=== PATIENT | female | born 1950 | race Caucasian/White ===

== ENCOUNTER 2018-11-14 13:36 | Outpatient (REF) | payer MEDICARE, SELFPAY ==
[2018-11-14 22:01] LABS: ALT 26 U/L (12-78); AST 23 U/L (15-37); Albumin 3.9 g/dL (3.4-5.0); Alkaline Phosphatase 83 U/L (46-116); Anion Gap 9.4 mmol/L (3-11); BUN 19 mg/dL (7-18); Bilirubin, Total 0.6 mg/dL (0.2-1.0); CO2 29.6 mmol/L (21.0-32.0); CREATININE 0.61 mg/dL (0.55-1.02); Calcium 9.4 mg/dL (8.5-10.1); Chloride 101 mmol/L (98-107); Glucose 122 mg/dL (70-100); Potassium 3.3 mmol/L (3.5-5.1); Sodium 140 mmol/L (136-145); Total Protein 7.5 g/dL (6.4-8.2)
== END 2018-11-14 13:56 ==
LOC: NCHCN 13:36
PROVIDERS: Visit Provider Nurse Practitioner
DX: E87.6 Hypokalemia (principal); I10 Essential (primary) hypertension
CPT/HCPCS: 80053

== ENCOUNTER 2018-12-03 00:15 | Outpatient (CLI) | payer MEDICARE, SELFPAY ==
--- NOTE | 2018-12-03 12:25 | DI.MAMMO_ITS ---
SYMPTOM/DIAGNOSIS: SCREENING Z12.31 MAMMOGRAMS: Mammograms were interpreted according to the usual protocol including computer analysis with CAD system, tomosynthesis and C view imaging. Comparison is made with exams from [id number]. The breasts are composed of fatty density tissue, breast density, Category A. No suspicious masses or suspicious microcalcifications are seen. There has been no significant change. IMPRESSION: Category 1, negative mammogram. Yearly screening mammography is recommended. [facility] ASSESSMENT OF FINDINGS: Negative. Category 1. Patient will receive a letter notifying them of these results. BI-RAD category A. The breasts are almost entirely fatty.
== END 2018-12-03 00:35 ==
PROVIDERS: Visit Provider Nurse Practitioner
DX: Z12.31 Encounter for screening mammogram for malignant neoplasm of breast (principal)
CPT/HCPCS: 77063; 77067

== ENCOUNTER 2018-12-03 14:21 | Outpatient (REF) | payer MEDICARE, SELFPAY ==
[2018-12-03 21:13] LABS: Anion Gap 10.2 mmol/L (3-11); BUN 16 mg/dL (7-18); CO2 26.8 mmol/L (21.0-32.0); CREATININE 0.66 mg/dL (0.55-1.02); Chloride 103 mmol/L (98-107); Glucose 141 mg/dL (70-100); Potassium 4.2 mmol/L (3.5-5.1); Sodium 140 mmol/L (136-145)
== END 2018-12-03 14:41 ==
LOC: NCHCN 14:21
PROVIDERS: PCP Nurse Practitioner Family; Visit Provider Nurse Practitioner Family
DX: E87.6 Hypokalemia (principal); I10 Essential (primary) hypertension
CPT/HCPCS: 80048

== ENCOUNTER → 2018-12-17 09:41 | Outpatient (BNVA) | payer MEDICARE, SELFPAY | PROVIDERS: PCP Nurse Practitioner Family; Visit Provider Surgery | DX: K43.9 Ventral hernia without obstruction or gangrene (principal); I10 Essential (primary) hypertension | CPT/HCPCS: 99213 ==

== ENCOUNTER 2018-12-19 00:58 | Outpatient (CLI) | payer MEDICARE, SELFPAY ==
--- NOTE | 2018-12-19 08:01 | DI.CT_ITS ---
SYMPTOM/DIAGNOSIS: HERNIA AT UMBILICUS, K43.[address]: CT scan of the abdomen and pelvis was performed following oral and intravenous contrast material. There are no priors for direct comparison. Atelectatic changes are seen in the lung bases. There is a small hiatal hernia. The liver is normal in size. No suspicious hepatic mass is seen. The portal, superior mesenteric and splenic veins are patent. The patient is status post cholecystectomy. There is no biliary ductal dilatation. The pancreas and peripancreatic soft tissues are unremarkable. The spleen is unremarkable. Incidental note is made of a small accessory spleen laterally. The adrenal glands are unremarkable. There are bilateral renal cysts, the largest is seen on the left kidney and measures 6.8 by 7.2 by 7 cm. There are thin calcifications seen within the wall. No solid component is present. This was present on the abdominal ultrasound from 07/23/11. There is a 5 mm. non obstructing stone in the upper pole of the left kidney. The urinary bladder is intact. The reproductive organs were visualized. There are cysts seen bilaterally. The largest is on the left ovary which measures 3.2 by 2.3 cm. There is a cystic structure in the cul-de-sac measuring 6.7 by 5.0 cm. The right ovary was visualized and is grossly unremarkable except for a small 1.3 cm. cyst. There is mild atherosclerosis of the abdominal aorta but no aneurysmal dilatation is present. No significant abdominal or pelvic adenopathy, ascites or pneumoperitoneum is present. There is colonic diverticulosis but no evidence of acute diverticulitis. No findings to suggest an acute appendicitis are present. There is a midline anterior abdominal wall hernia containing an unremarkable loop of small bowel. No evidence of strangulation or incarceration is seen. Degenerative changes are seen in the spine, particularly at the L 4-5 disc space. IMPRESSION: 1. Moderate sized small bowel containing midline anterior abdominal wall hernia. No evidence of strangulation or incarceration. 2. 6.7 cm. cystic structure in the cul-de-sac in the pelvis. Pelvic ultrasound and/or MRI should be considered for further evaluation. 3. Left ovarian cysts. Pelvic ultrasound is recommended for further evaluation in this presumably postmenopausal patient. 4. Left nephrolithiasis.
[2018-12-19 08:32] LABS: HCT 40.7 % (36.0-46.0); HGB 13.6 g/dL (12.0-15.5); Mean Corp. HGB Concentration 33.4 g/dL (32.0-36.0); Mean Corpuscular Hemoglobin 31.7 pg (27.0-33.0); Mean Corpuscular Volume 94.9 fL (80-95); Mean Platelet Volume 10.5 fL (8.0-11.0); Platelet Count 256 x1000/uL (130-400); RBC 4.29 m/cumm (4.00-5.20); RBC Distribution Width 12.9 % (11.7-14.6); White Blood Cell Count 7.17 k/cumm (4.4-10.8)
[2018-12-19 08:45] LABS: ALT 24 U/L (12-78); AST 22 U/L (15-37); Albumin 3.5 g/dL (3.4-5.0); Alkaline Phosphatase 83 U/L (46-116); Anion Gap 6.8 mmol/L (3-11); BUN 15 mg/dL (7-18); Bilirubin, Total 0.5 mg/dL (0.2-1.0); CO2 28.2 mmol/L (21.0-32.0); CREATININE 0.63 mg/dL (0.55-1.02); Calcium 8.7 mg/dL (8.5-10.1); Chloride 106 mmol/L (98-107); Glucose 118 mg/dL (70-100); Potassium 3.9 mmol/L (3.5-5.1); Sodium 141 mmol/L (136-145); Total Protein 7.4 g/dL (6.4-8.2)
[2018-12-19] MEDS: Omnipaque 350 MG/ML 100 ML BTL IJ (09:24)
== END 2018-12-19 01:18 ==
PROVIDERS: PCP Nurse Practitioner Family; Visit Provider Surgery
DX: K43.9 Ventral hernia without obstruction or gangrene (principal); N83.292 Other ovarian cyst, left side; N20.0 Calculus of kidney; Z90.49 Acquired absence of other specified parts of digestive tract; N28.1 Cyst of kidney, acquired; N83.291 Other ovarian cyst, right side; N85.8 Other specified noninflammatory disorders of uterus
CPT/HCPCS: 80053; 85027; 74177; J3490

== ENCOUNTER → 2018-12-31 09:32 | Outpatient (BNVA) | payer MEDICARE, SELFPAY | PROVIDERS: PCP Nurse Practitioner Family; Referring Provider Nurse Practitioner Family; Visit Provider Surgery | DX: R69 Illness, unspecified ==

== ENCOUNTER 2018-12-31 10:10 | Outpatient (CLI) | payer MEDICARE, SELFPAY ==
[2019-01-01 11:32] LABS: CA 125 11 U/mL (0-30)
== END 2018-12-31 10:30 ==
PROVIDERS: PCP Nurse Practitioner Family; Visit Provider Surgery
DX: D39.12 Neoplasm of uncertain behavior of left ovary (principal); I10 Essential (primary) hypertension; D39.8 Neoplasm of uncertain behavior of other specified female genital organs
CPT/HCPCS: 36415; 86304; 99212; 99213

== ENCOUNTER 2019-01-21 01:08 | Outpatient (CLI) | payer MEDICARE, SELFPAY ==
--- NOTE | 2019-01-21 13:40 | DI.MRI_ITS ---
SYMPTOMS/DIAGNOSIS: ABNORMAL CT, LEFT OVARIAN CYST, N83.202, PELVIC SWELLING, R19.00, POSTMENOPAUSAL, Z78.0 MRI OF THE PELVIS: Pre and post contrast examination was performed. Comparison CT scan is 12/19/18. The right ovary is seen. It measures 3.1 cm AP x 1.9 cm transverse. There are two small cysts seen; the largest measures 1.4 cm, the smaller measures 0.8 cm (series 4 image 20). The left ovary is visualized. It measures 3.6 x 1.9 cm. There is a lobulated cyst seen on the left ovary measuring 3.2 x 1.9 cm (series 4 image 18). This corresponds to the cyst seen on the CT scan in the left adnexa. There is a 6.1 cm transverse x 5.8 cm AP x 3.6 cm craniocaudad homogeneous mass in the cul-de-sac. It is homogeneously hyperintense on the T2 weighted images and homogeneously hypointense on the T1 weighted images. Following contrast administration, there is thin enhancement of the wall. No solid component is identified. It appears to be separate from either ovary. It also appears to be distinct from the urinary bladder. There is diverticulosis seen of the sigmoid colon, but no findings to suggest acute diverticulitis. No free pelvic fluid is identified. No significant pelvic adenopathy is seen. The uterus appears grossly unremarkable. Marrow signal is within normal limits. Degenerative changes are seen in the lower lumbar spine and sacroiliac joints. IMPRESSION: 1. A 6.1 cm simple cystic lesion in the cul-de-sac. Differential considerations include peritoneal inclusion cyst, paraovarian cyst, lymphocele, endometrioma. Other etiologies cannot be entirely excluded. 2. Bilateral ovarian cysts. The largest is seen on the right and measures 3.1 x 1.9 cm.
[2019-01-21] MEDS: Normal Saline Flush 10 ML SYR IVP (14:30)
[2019-01-21] MEDS: Gadoterate meglumine 20 ML VIAL IVP (14:32)
== END 2019-01-21 01:28 ==
PROVIDERS: PCP Nurse Practitioner Family; Visit Provider Surgery
DX: R19.00 Intra-abdominal and pelvic swelling, mass and lump, unspecified site; Z78.0 Asymptomatic menopausal state; N83.291 Other ovarian cyst, right side; N83.292 Other ovarian cyst, left side; D49.0 Neoplasm of unspecified behavior of digestive system
CPT/HCPCS: 72197

== ENCOUNTER 2019-03-02 15:27 | Emergency (ER) | payer MEDICARE, SELFPAY ==
[2019-03-02] VITALS (17 sets, daily range): BP systolic 92–137; BP diastolic 48–98; PULSE 66–90; RESP 16; TEMP 36.7; O2SAT 86–98
[2019-03-02 15:49] LABS: Bilirubin Negative (Negative); Blood Trace-intact (Negative); Clarity Sl Cloudy (Clear); Glucose Negative (Negative); Ketones Negative (Negative); Leukocyte Esterase Small (Negative); Nitrite Positive (Negative); Urobilinogen 0.2 EU/dL (Up TO 0.2); pH 5.5 (5-8)
[2019-03-02 16:00] LABS: Bacteria Moderate HPF (Negative); C & S Indicated? Yes; Casts Negative LPF (Negative); Crystals Negative HPF (Negative); Epithelial Cells Rare HPF (Negative); Mucus Negative (Negative); Other Cells Negative (Negative); RBC 0-2 (0-2); WBC >50 HPF (0-5)
--- NOTE | 2019-03-02 16:14 | W.ED.GENAD ---
Discharge Plan Disposition Patient Disposition: HOME Discharge Details Chief Complaint: FlankPain Clinical Impression: Acute flank pain, Urinary tract infection Primary Care Provider: Nsiha Samano ED Provider: Jean Pastor Home Meds and New Rx's Prescriptions: New cephalexin 500 mg tablet 500 mg PO Q12H Qty: 14 RF: 0 No Action simvastatin 20 mg tablet 20 mg PO QHS RF: 0 losartan 50 mg tablet 50 mg PO DAILY RF: 0 chlorthalidone 25 mg Tablet 50 mg PO DAILY RF: 0 Discharge Instructions Instructions: Urinary Tract Infection in Women (ED), Flank Pain (ED) Additional Instructions: Please return for increasing back pain fever chills or other concern Referrals: Nisha Samano [Primary Care Provider] - [facility] General Date/Time Provider Initiated Documentation: 03/02/19 15:47. Related Data Home Medications Medication Instructions Recorded Confirmed losartan 50 mg tablet 50 mg PO DAILY 12/12/18 03/02/19 simvastatin 20 mg tablet 20 mg PO QHS 12/12/18 03/02/19 cephalexin 500 mg PO Q12H #14 tab 03/02/19 chlorthalidone 50 mg PO DAILY 03/02/19 03/02/19 Previous Rx's Medication Instructions Recorded cephalexin 500 mg PO Q12H #14 tab 03/02/19 Allergies Allergy/AdvReac Type Severity Reaction Status Date / Time lisinopril Allergy Unknown Verified 03/02/19 15:36 General Stated Complaint: FlankPain FERNANDO: 3 PFSH Medical History (Updated 03/02/19 @ 15:36 by Annalisa Gomez) Dyslipidemia (Chronic) Hernia (Chronic) HTN (hypertension) (Chronic) Hypokalemia (Acute) Intermittent palpitations (Chronic) Left ventricular hypertrophy (Chronic) 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) Umbilical hernia (Chronic) Surgical History (Updated 03/02/19 @ 15:36 by Annalisa Gomez) H/O tubal ligation (Chronic) Status post surgical removal of both fallopian tubes (Acute) Social History Smoking/Tobacco Use Status: Never Alcohol Intake: never Drug use: Never Substance use type: does not use Do you feel safe at home: Yes Do you feel safe in your relationship?: Yes Course Vital Signs Temperature 36.7 C 03/02/19 15:30 Pulse 90 03/02/19 15:30 Respiratory Rate 16 03/02/19 15:30 Blood Pressure 137/98 H 03/02/19 15:30 Pulse Oximetry 98 03/02/19 15:30 Temperature 36.7 C 03/02/19 15:30 Temperature Source Skin 03/02/19 15:30 Pulse 90 03/02/19 15:30 Respiratory Rate 16 03/02/19 15:30 Respiratory Effort Non-Labored 03/02/19 15:33 Blood Pressure 137/98 H 03/02/19 15:30 Pulse Oximetry 98 03/02/19 15:30 Pain Level 4 03/02/19 15:42 Lab/Test Results Lab/Test Results: 03/02/19 15:40 Urine - Reflex from Ua Urine Culture - Pending Laboratory Tests Range/Units 03/02/19 15:40 Urine Color (Yellow) Yellow Urine Clarity (Clear) Sl cloudy Urine pH (5-8) 5.5 Ur Specific [place] (1.005-1.025) 1.020 Urine Protein (Negative) mg/dL Trace H Urine Ketones (Negative) mg/dL Negative Urine Blood (Negative) Trace-intact H Urine Nitrite (Negative) Positive H Urine Bilirubin (Negative) Negative Urine Urobilinogen (Up TO 0.2) EU/dL 0.2 Ur Leukocyte Esterase (Negative) Small H Urine RBC (0-2) 0-2 Urine WBC (0-5) HPF >50 Ur Epithelial Cells (Negative) HPF Rare Urine Crystals (Negative) HPF Negative Urine Bacteria (Negative) HPF Moderate Urine Casts (Negative) LPF Negative Urine Mucus (Negative) Negative Urine Other (Negative) Negative Ur Culture Indicated? Yes Urine Glucose (Negative) mg/dL Negative
[2019-03-02 17:06] LABS: Abs Immature Grans 0.02 k/cumm (0.0-0.09); Absolute Basophil Count 0.04 k/cumm (0.0-0.2); Absolute Eosinophil Count 0.09 k/cumm (0.0-0.7); Absolute Lymphocyte Count 1.74 k/cumm (1.2-3.4); Absolute Monocyte Count 0.74 k/cumm (0.11-0.7); Absolute Neutrophil Count 4.07 k/cumm (1.2-6.7); Basophils % 0.6; Eosinophils % 1.3; HCT 41.3 % (36.0-46.0); HGB 14.5 g/dL (12.0-15.5); Immature Grans % 0.3; Mean Corp. HGB Concentration 35.1 g/dL (32.0-36.0); Mean Corpuscular Hemoglobin 31.8 pg (27.0-33.0); Mean Corpuscular Volume 90.6 fL (80-95); Mean Platelet Volume 10.6 fL (8.0-11.0); Neutrophils % 60.8; Platelet Count 269 x1000/uL (130-400); RBC 4.56 m/cumm (4.00-5.20); RBC Distribution Width 12.4 % (11.7-14.6)
[2019-03-02 17:16] LABS: ALT 21 U/L (12-78); AST 17 U/L (15-37); Albumin 3.7 g/dL (3.4-5.0); Alkaline Phosphatase 94 U/L (46-116); Anion Gap 9.3 mmol/L (3-11); BUN 19 mg/dL (7-18); Bilirubin, Total 0.6 mg/dL (0.2-1.0); CO2 28.7 mmol/L (21.0-32.0); CREATININE 0.71 mg/dL (0.55-1.02); Calcium 9.6 mg/dL (8.5-10.1); Chloride 104 mmol/L (98-107); Glucose 133 mg/dL (70-100); Lipase 119 U/L (73-393); Magnesium 1.9 mg/dL (1.8-2.4); Sodium 142 mmol/L (136-145); Total Protein 7.6 g/dL (6.4-8.2)
[2019-03-02 17:26] LABS: Potassium 2.9 mmol/L (3.5-5.1)
--- NOTE | 2019-03-02 17:31 | DI.CT_ITS ---
SYMPTOMS/DIAGNOSIS: RIGHT LOWER QUADRANT PAIN, POST TUBAL CT UROGRAPHY: Noncontrast CT scan of the abdomen and pelvis followed by contrast was performed. A [id number] image through the abdomen and pelvis was also obtained. The noncontrast CT scan shows a 6 mm nonobstructing stone in the mid pole of the left kidney. This is unchanged compared to 12/19/18. No ureterolithiasis or bladder stones are present. The patient is status post cholecystectomy. Following contrast administration, the CT scan was performed. The liver is normal in size. No suspicious hepatic mass is seen. There is no biliary ductal dilatation. The pancreas, spleen and adrenal glands are unremarkable. There are stable bilateral renal cysts, the largest is seen in the superior pole of the left kidney and contains thin wall calcification. No new or suspicious renal masses are seen. The urinary bladder is intact. The reproductive organs are unremarkable as visualized. The ovaries were not visualized on the current examination. The previously seen cystic structure in the pelvis is no longer visualized and may have been surgically resected. The abdominal aorta is of normal caliber. No aneurysmal dilatation is seen. No significant abdominal or pelvic adenopathy, ascites or pneumoperitoneum is present. There is diverticulosis of the colon, but no evidence of acute diverticulitis. No evidence of bowel obstruction, inflammation or infection. No findings to suggest an acute appendicitis are present. There is again seen a midline anterior abdominal wall hernia containing an unremarkable loop of bowel. No evidence of strangulation. Delayed images through the kidneys, ureters and bladder show no evidence of obstruction. Contrast is seen in the urinary bladder. No filling defects are seen. Incidental note is made of a cystocele arising from the base of the bladder. It is unchanged. No acute osseous abnormality is identified. IMPRESSION: 1. Colonic diverticulosis but no evidence of acute diverticulitis. The colon is largely contracted, making evaluation of wall thickness difficult. 2. Stable bilateral renal cysts and left nephrolithiasis. 3. Stable umbilical hernia containing fat and unremarkable bowel loops. No evidence of obstruction or strangulation. 4. Appendix not visualized, but no findings to suggest acute appendicitis. 5. Ovaries not visualized. The cystic structure previously seen in the pelvis is no longer visualized and these may have been surgically resected.
[2019-03-02] MEDS: Omnipaque 350 MG/ML 100 ML BTL IJ (17:50)
[2019-03-02] MEDS: Normal Saline 1,000 ML 1000 ML IV (18:07)
[2019-03-02] MEDS: Potassium Chloride 20 MEQ TABCR 40 MEQ PO (18:07)
--- NOTE | 2019-03-02 18:17 | DI.VRAD_ITS ---
Addendum created by Chrsi Triana MD on 03/02/2019 7:09:42 PM EDT Addendum: I was contacted by Lavell Garcia at 6:05 PM on 03/02/2019 with a request for further review of the exam from the facility. He indicates that this was actually a CT urography protocol exam, and not a standard CT abdomen and pelvis without and with contrast. No further urologic history was provided. A 7 mm Bosniak category 1 cyst is identified in the lateral midpole of the right kidney. A 5 mm Bosniak category 1 cyst is identified in the posterior midpole of the right kidney. An 8mm cyst in the medial lower pole cortex of the right kidney demonstrates a thin internal septation consistent with a small Bosniak category 2 cyst. A large 7.3 cm cyst in the upper pole of the left kidney demonstrates thin peripheral rim calcification consistent with a large Bosniak category 2 cyst. Bilateral renal contrast excretion is maintained without evidence of hydronephrosis or ureteral stones. The previously identified 6 mm stone in the midpole distribution of the left kidney is unchanged. No solid renal mass lesions. Initial report created on 03/02/2019 6:17:00 PM EDT EXAM: CT Abdomen and Pelvis Without and With Contrast EXAM DATE/TIME: 03/02/2019 4:47 PM CLINICAL HISTORY: 68 years old, female; Other: Post tubal now presenting with pain; Prior surgery TECHNIQUE: Imaging protocol: Axial computed tomography images of the abdomen and pelvis without and with intravenous contrast. Coronal and sagittal reformatted images were created and reviewed. Radiation optimization: All CT scans at this facility use at least one of these dose optimization techniques: automated exposure control; mA and/or kV adjustment per patient size (includes targeted exams where dose is matched to clinical indication); or iterative reconstruction. Contrast material: OMNI 350; Contrast volume: 100 ml; Contrast route: IV; COMPARISON: CT ABDOMEN PELVIS W 12/19/2018 9:10 AM FINDINGS: Liver: The liver is normal in appearance. Gallbladder and bile ducts: Prior cholecystectomy with expected mild postoperative dilatation of the biliary system. Pancreas: Normal. No inflammatory changes or ductal dilation. Spleen: The spleen is normal in appearance. Adrenals: Normal. No adrenal mass. Kidneys and ureters: 6 mm probable cyst in the medial midpole cortex of the right kidney unchanged. 6 mm probable cyst in the lateral midpole cortex of the right kidney unchanged. 5 mm probable cyst in the posterior cortex of the right kidney unchanged. Large 7.1 cm cyst with thin peripheral calcification in the upper pole of the left kidney is unchanged. 6 mm nonobstructive stone in the midpole the left kidney is unchanged in position. No hydronephrosis or urolithiasis. Stomach and bowel: The visualized distal esophagus and stomach are normal. The small bowel is otherwise unremarkable. The colon is largely contracted . This is likely responsible for the slightly thick walled appearance of the proximal colon and distal sigmoid colon, and rectum. It makes a difficult to exclude mild colitis. There is moderate diverticulosis in the descending colon and sigmoid colon without evidence of acute diverticulitis. Appendix: The appendix is not identified. No secondary signs of appendicitis. Intraperitoneal space: No free fluid or air. Vasculature: Normal. No abdominal aortic aneurysm. Lymph nodes: No adenopathy. Bladder: There is a small cystocele present at the base of the bladder measuring 18 mm transverse, unchanged. Reproductive: The uterus is unremarkable. The left ovary is not identified on today's exam and may be surgically absent. The right ovary is not identified and may be surgically absent. The previously identified 7 cm fluid density cyst in the right posterolateral pelvis on the previous exam is no longer present and may have been surgically resected. Bones/joints: No acute osseous abnormalities. Soft tissues: The previously identified large umbilical hernia containing herniated fat and the mesenteric vessels, and loops of small bowel is again noted. It is mildly expanded in size since the comparison study on 12/19/2018 measuring 9.1 cm transverse. No evidence of associated bowel obstruction or strangulation. IMPRESSION: 1. The ovaries are no longer identified and are presumably surgically absent. The 7 cm thin-walled cystic structure in the posterior right pelvis on the prior exam is now absent as well, presumably surgically resected. No evidence of abscess or hematoma. 2. The colon is largely contracted. This may be responsible for the slightly thick walled appearance in the proximal colon, distal sigmoid colon, and rectum, however it is difficult to exclude mild colitis. There is no evidence of pneumatosis, perforation, or abscess. 3. Small cystocele noted at the base of the bladder . 4. Bilateral renal cysts unchanged. 5. 6 mm nonobstructing left renal stone unchanged in position. No hydronephrosis or ureteral stones. 6. Large umbilical hernia containing fat and small bowel loops with no evidence of bowel obstruction or strangulation. 7. The appendix is not identified. No secondary signs of appendicitis. Dictated and Authenticated by: Chris Triana MD. Ordering:RUCHI Pena MD
[2019-03-02] MEDS: Cephalexin 500 MG CAP PO (19:54)
== END 2019-03-02 20:00 | disposition home or self-care (01) ==
PROVIDERS: Emergency Provider Emergency Medicine; PCP Nurse Practitioner Family
DX: R10.9 Unspecified abdominal pain (principal); N39.0 Urinary tract infection, site not specified; I10 Essential (primary) hypertension
CPT/HCPCS: 80053; 83690; 87077; 96360; 99285; 74178; 81003; 81015; 83735; 85025; 87086; 87186; 99281; J3490

== ENCOUNTER 2019-03-08 11:03 | Outpatient (CLI) | payer MEDICARE, SELFPAY ==
[2019-03-08 11:57] LABS: Potassium 3.4 mmol/L (3.5-5.1)
== END 2019-03-08 11:23 ==
PROVIDERS: PCP Nurse Practitioner Family; Visit Provider Nurse Practitioner Family
DX: E87.6 Hypokalemia (principal)
CPT/HCPCS: 36415; 84132

== ENCOUNTER 2020-02-10 12:05 | Outpatient (REF) | payer MEDICARE, SELFPAY ==
[2020-02-10 21:28] LABS: ALT 21 U/L (14-59); AST 18 U/L (15-37); Anion Gap 7.6 mmol/L (3-11); BUN 18 mg/dL (7-18); CO2 29.4 mmol/L (21.0-32.0); CREATININE 0.81 mg/dL (0.55-1.02); Calcium 9.2 mg/dL (8.5-10.1); Calculated LDL 81 mg/dL (<100); Chloride 104 mmol/L (98-107); Cholesterol 158 mg/dL (<200); Glucose 113 mg/dL (74-106); HDL Cholesterol 59 mg/dL (40-60); Potassium 3.7 mmol/L (3.5-5.1); Sodium 141 mmol/L (136-145); Triglyceride 94 mg/dL (<150)
== END 2020-02-10 12:25 ==
LOC: NCHCN 12:05
PROVIDERS: PCP Nurse Practitioner Family; Visit Provider Nurse Practitioner Family
DX: E87.6 Hypokalemia (principal); E78.5 Hyperlipidemia, unspecified; I10 Essential (primary) hypertension; E66.9 Obesity, unspecified
CPT/HCPCS: 80048; 80061; 84450; 84460

== ENCOUNTER 2020-04-24 16:19 | Outpatient (REF) | payer MEDICARE, SELFPAY ==
[2020-04-24 19:27] LABS: Bilirubin Negative (Negative); Blood Negative (Negative); Clarity Sl Cloudy (Clear); Glucose Negative (Negative); Ketones Negative (Negative); Leukocyte Esterase Negative (Negative); Nitrite Positive (Negative); Urobilinogen 0.2 EU/dL (Up TO 0.2); pH 7.5 (5-8)
[2020-04-24 19:39] LABS: Bacteria Many HPF (Negative); C & S Indicated? Yes; Casts Negative LPF (Negative); Crystals Negative HPF (Negative); Epithelial Cells Few HPF (Negative); Mucus Negative (Negative); RBC 0-2 HPF (0-2)
== END 2020-04-24 16:39 ==
LOC: NCHCN 16:19
PROVIDERS: PCP Nurse Practitioner Family; Visit Provider Nurse Practitioner Family
DX: R10.9 Unspecified abdominal pain (principal); R82.998 Other abnormal findings in urine
CPT/HCPCS: 87077; 81003; 81015; 87086; 87186

== ENCOUNTER 2021-05-24 13:18 | Outpatient (REF) | payer MEDICARE, SELFPAY ==
[2021-05-24 14:47] LABS: Anion Gap 5.1 mmol/L (3-11); BUN 17 mg/dL (7-18); CO2 33.9 mmol/L (21.0-32.0); CREATININE 0.9 mg/dL (0.55-1.02); Calcium 9.2 mg/dL (8.5-10.1); Chloride 103 mmol/L (98-107); Glucose 99 mg/dL (74-106); Potassium 3.7 mmol/L (3.5-5.1); Sodium 142 mmol/L (136-145)
== END 2021-05-24 13:19 | disposition home or self-care (01) ==
LOC: NCHCN 13:18
PROVIDERS: PCP Nurse Practitioner Family; Visit Provider Nurse Practitioner Family
DX: I10 Essential (primary) hypertension (principal)
CPT/HCPCS: 80048

== ENCOUNTER → 2021-07-01 09:29 | Outpatient (BNVA) | payer MEDICARE, SELFPAY | PROVIDERS: PCP Nurse Practitioner Family; Referring Provider Nurse Practitioner Family; Visit Provider Surgery | DX: K42.9 Umbilical hernia without obstruction or gangrene (principal) | CPT/HCPCS: 99213 ==

== ENCOUNTER 2021-07-02 02:12 | Outpatient (CLI) | payer MEDICARE, SELFPAY ==
--- NOTE | 2021-07-02 10:30 | DI.MAMMO_ITS ---
Exam(s) MAMMO SCREENING EXAM: MAMMO SCREENING CLINICAL HISTORY: SCREENING MAMMO Z12.31 TECHNIQUE: Mammograms were interpreted according to the usual protocol including computer analysis w [employer] CAD system, tomosynthesis and C-view imaging. COMPARISON: 2011 through 2018 FINDINGS: The breasts are composed of mainly fatty density , Breast Density category A. No suspicious masses or suspicious microcalcifications are seen. No skin thickening or abnormal axillary lymph nodes are seen. There has been no significant change from prior exams. IMPRESSION: BI-RADS Category 1, Negative mammogram Yearly screening mammography is recommended. Breast Density - Category A, fatty density. A negative radiographic report should not delay biopsy if a dominant or clinically suspicious mass is present. Up to ten percent of cancers are not identified on mammography. A negative report may reinforce clinical impression. Adenosis and dense breasts may obscure an underlying neoplasm. False positive reports average 6 to 10%. Patient will receive a letter notifying them of these results.
--- NOTE | 2021-07-02 11:00 | DI.DEXA_ITS ---
Exam(s) XR DEXA BONE DENSITY W/WO ANUPAM EXAM: XR DEXA BONE DENSITY W/WO ANUPAM CLINICAL HISTORY: MENOPAUSAL Z78.0 TECHNIQUE: [employer] C densitometer COMPARISON: No exams were available for comparison FINDINGS: Lateral view of the thoracic and lumbar spine shows increased thoracic kyphosis. The upper through m id thoracic vertebral bodies are not well seen. Bone mineral density measurements of the lumbar spine correspond to a total T-score of -0.9, in the n ormal range. Bone mineral density measurements of the left hip correspond to a total T-score of -1.2 . The femora l neck T-score is -2.3, in the osteopenic range. . The left forearm bone mineral density measurements correspond to a T-score of the distal 3rd of 0.3, in the normal range.. FRAX 10 year fracture risk major osteoporotic fracture: 13 percent. 10 year risk of hip fracture: 3 percent. IMPRESSION: Normal bone mineral density of the lumbar spine and left wrist. Osteopenia of the left hip.
== END 2021-07-02 02:32 ==
PROVIDERS: PCP Nurse Practitioner Family; Visit Provider Nurse Practitioner Family
DX: Z12.31 Encounter for screening mammogram for malignant neoplasm of breast (principal); M85.88 Other specified disorders of bone density and structure, other site; Z78.0 Asymptomatic menopausal state
CPT/HCPCS: 77063; 77067; 77080

== ENCOUNTER 2021-08-24 01:52 | Outpatient (CLI) | payer MEDICARE, SELFPAY ==
[2021-08-24 10:33] LABS: Source Nasal/Nares
[2021-08-24 12:41] LABS: COVID-19 PCR Negative (Negative)
== END 2021-08-24 01:53 | disposition home or self-care (01) ==
PROVIDERS: PCP Nurse Practitioner Family; Visit Provider Surgery
DX: Z20.822 Contact with and (suspected) exposure to COVID-19 (principal)
CPT/HCPCS: 87635

== ENCOUNTER 2021-08-25 06:15 | Day surgery (SDC) | payer MEDICARE, SELFPAY ==
[2021-08-25] VITALS (9 sets, daily range): BP systolic 100–127; BP diastolic 54–87; PULSE 52–72; RESP 10–17; TEMP 36.1–36.4; O2SAT 93–99; BMI 34.0
--- NOTE | 2021-08-25 06:49 | W.PREOPHP ---
Assessment and Plan Assessment and plan (1) Umbilical hernia: Status: Acute Assessment and plan: Mrs. Ness is a very pleasant 71-year-old female here today to discuss a hernia repair. She has had an umbilical hernia for quite some time. It does bother her when she coughs, sneezes or has increased gas. She had a CT scan done in December 2018 and again in February 2019. The hernia is stable. The defect measures anywhere from 3.4 to 3.8 cm depending on where you measure. There is bowel within the hernia sac. She has not had any signs and symptoms of incarceration. We did discuss signs and symptoms of incarceration, strangulation. We discussed laparoscopic repair with possible combination of open laparoscopic repair. Because of the bowel tunneling underneath her skin not sure whether anesthesia would feel comfortable trying to do a bilateral rectus. I will discuss this with them the day of surgery. If unable to do it prior we might be able to do a rescue block afterwards once the bowel is reduced. Risks, benefits and complications have been reviewed. Complications include but are not limited to bleeding, pain, infection, injury to underlying structures like bowel and adverse reaction to the medication. Questions were entertained and answered to their satisfaction and they wished to proceed. No guarantees were given or implied. Proceed with laparoscopic umbilical hernia repair with mesh Qualifiers: Obstruction and gangrene presence: without obstruction or gangrene Qualified Code(s): K42.9 - Umbilical hernia without obstruction or gangrene History of Present Illness Narrative: Mrs Rene Kelly is a very pleasant 71-year-old female who is here today to discuss an umbilical hernia repair. She was seen in the office back in 2018 for the same issue. A CT scan was done which showed a complex cyst in her pelvis. She was referred down to [facility] at [facility]. She underwent a laparoscopic oophorectomy. Thankfully the cyst was benign. She did not have the umbilical hernia repaired at that time. She is here today to discuss repair. The hernia has bothered her on and off for years. She does not have any nausea or vomiting. She does have pain with coughing sneezing or when she has a lot of gas. She does feel that it reduces completely when she lays down and relaxes her abdominal muscles. Her past medical history is significant for dyslipidemia and hypertension. She also has some left ventricular hypertrophy. She underwent a laparoscopic oophorectomy without any difficulty 2 years ago. She has not had any new cardiac or respiratory issues since then. She had no difficulty with the anesthetic. Her CT scan from 2019 was reviewed. The hernia defect measures anywhere from 3.4 to 3.8 cm. There is small bowel within the hernia sac. CT UROGRAPHY: Noncontrast CT scan of the abdomen and pelvis followed by contrast was performed. A 2-ianynm-vlxpuqt image through the abdomen and pelvis was also obtained. The noncontrast CT scan shows a 6 mm nonobstructing stone in the mid pole of the left kidney. This is unchanged compared to 12/19/18. No ureterolithiasis or bladder stones are present. The patient is status post cholecystectomy. Following contrast administration, the CT scan was performed. The liver is normal in size. No suspicious hepatic mass is seen. There is no biliary ductal dilatation. The pancreas, spleen and adrenal glands are unremarkable. There are stable bilateral renal cysts, the largest is seen in the superior pole of the left kidney and contains thin wall calcification. No new or suspicious renal masses are seen. The urinary bladder is intact. The reproductive organs are unremarkable as visualized. The ovaries were not visualized on the current examination. The previously seen cystic structure in the pelvis is no longer visualized and may have been surgically resected. The abdominal aorta is of normal caliber. No aneurysmal dilatation is seen. No significant abdominal or pelvic adenopathy, ascites or pneumoperitoneum is present. There is diverticulosis of the colon, but no evidence of acute diverticulitis. No evidence of bowel obstruction, inflammation or infection. No findings to suggest an acute appendicitis are present. There is again seen a midline anterior abdominal wall hernia containing an unremarkable loop of bowel. No evidence of strangulation. Delayed images through the kidneys, ureters and bladder show no evidence of obstruction. Contrast is seen in the urinary bladder. No filling defects are seen. Incidental note is made of a cystocele arising from the base of the bladder. It is unchanged. No acute osseous abnormality is identified. IMPRESSION: 1. Colonic diverticulosis but no evidence of acute diverticulitis. The colon is largely contracted, making evaluation of wall thickness difficult. 2. Stable bilateral renal cysts and left nephrolithiasis. 3. Stable umbilical hernia containing fat and unremarkable bowel loops. No evidence of obstruction or strangulation. 4. Appendix not visualized, but no findings to suggest acute appendicitis. 5. Ovaries not visualized. The cystic structure previously seen in the pelvis is no longer visualized and these may have been surgically resected. There have been no changes since we last saw her in the office in June Review of Systems Cardiovascular Cardiovascular: Denies chest pain, Denies chest pain at rest, Denies irregular heart rhythm, Denies dyspnea and Denies dyspnea on exertion Respiratory Respiratory: Denies cough, Denies dyspnea and Denies dyspnea on exertion Gastrointestinal Gastrointestinal: Reports as per HPI Genitourinary Genitourinary: Denies dysuria, Denies urinary incontinence and Denies urinary urgency Musculoskeletal Musculoskeletal: Reports system reviewed and no additional complaints, except as documented Integumentary/Breasts Skin/Breast: Reports system reviewed and no additional complaints, except as documented Neurologic Neurologic: Reports system reviewed and no additional complaints, except as documented Psychiatric Psychiatric: Reports system reviewed and no additional complaints, except as documented Endocrine Endocrine: Reports system reviewed and no additional complaints, except as documented Hematologic/Lymphatic Hematologic/Lymphatic: Denies easy bruising and Denies lymphadenopathy PFSH All Active Problems Umbilical hernia (Acute) Medical History Depression Dyslipidemia HTN (hypertension) Hypokalemia Intermittent palpitations Left ventricular hypertrophy Pt. states she is unaware of this. 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 reports ovaries removed also Social History Smoking/Tobacco Use Status: Never Smoking risk assessment performed?: Yes Alcohol Intake: never Drug use: Never Substance use type: does not use Details: CBD drops daily Do you feel safe at home: Yes Do you feel safe in your relationship?: Yes Meds Allergies and Home Medications Allergies Allergy/AdvReac Type Severity Reaction Status Date / Time lisinopril AdvReac Unknown Verified 08/25/21 06:38 Home Medications Medication Instructions Recorded Confirmed Type losartan 50 mg tablet 50 mg PO HS 12/12/18 08/25/21 History simvastatin 20 mg tablet 20 mg PO QHS 12/12/18 08/25/21 History calcium 600 mg-D3 800 unit-mag11 1 tab PO DAILY 06/29/21 08/25/21 History 50 px-qmhl-sxkzcf-otoniel-s.borat tablet chlorthalidone 25 mg tablet 25 mg PO HS tab 06/29/21 08/25/21 History acetaminophen [Tylenol] 650 mg PO ONCE PRN 08/25/21 08/25/21 History cannabidiol 1 08/25/21 History docusate sodium [Stool Softener] 50 mg PO DAILY 08/25/21 08/25/21 History Exam Const General: cooperative, comfortable and no acute distress Orientation: alert and oriented x3 HENMT Head: normocephalic and atraumatic Resp Effort & Inspection: normal respiratory effort Auscultation: clear to auscultation bilaterally Cardio Rate: regular rate Rhythm: regular rhythm Heart Sounds: no gallops, no murmurs and no rubs GI Palpation: soft, no hepatosplenomegaly, hernia umbilical and nontender Auscultation: normal bowel sounds
[2021-08-25] MEDS: Celecoxib 200 MG CAP PO (06:51)
[2021-08-25] MEDS: Acetaminophen 500 MG TAB 1000 MG PO (06:51)
[2021-08-25] MEDS: Lactated Ringers 1,000 ML 80 ML IV (07:05)
--- NOTE | 2021-08-25 07:08 | W.PM.OP ---
Date of service: 08/25/21 Time of Service: 09:09 Operative Note Operative Note DATE OF PROCEDURE: 08/25/21 PRE-OP DIAGNOSIS: umbilical hernia POST-OP DIAGNOSIS: same PROCEDURE: Umbilical hernia repair with mesh SURGEON: Jolanta Wu PROFESSOR OF BUSINESS ADMINISTRATION: Hellen Sarah ANESTHESIA TYPE: Local By Surgeon and General LMA/ETT Refer to Anesthesia Record ESTIMATED BLOOD LOSS: 15 PATHOLOGY: none sent COMPLICATIONS: None Patient was transported to: PACU Patient's condition: stable Indications: Mrs. Ness is a very pleasant 71-year-old female here today to discuss a hernia repair. She has had an umbilical hernia for quite some time. It does bother her when she coughs, sneezes or has increased gas. She had a CT scan done in December 2018 and again in February 2019. The hernia is stable. The defect measures anywhere from 3.4 to 3.8 cm depending on where you measure. There is bowel within the hernia sac. She has not had any signs and symptoms of incarceration. We did discuss signs and symptoms of incarceration, strangulation. We discussed laparoscopic repair with possible combination of open laparoscopic repair. Because of the bowel tunneling underneath her skin not sure whether anesthesia would feel comfortable trying to do a bilateral rectus. I will discuss this with them the day of surgery. If unable to do it prior we might be able to do a rescue block afterwards once the bowel is reduced. Risks, benefits and complications have been reviewed. Complications include but are not limited to bleeding, pain, infection, injury to underlying structures like bowel and adverse reaction to the medication. Questions were entertained and answered to their satisfaction and they wished to proceed. No guarantees were given or implied. Proceed with laparoscopic umbilical hernia repair with mesh Findings: large hernia sac defect measured 2 inches x 2 inches Procedure Description: After informed consent was obtained the patient was taken to the operating room and placed in a supine position. Monitors and SCDs were applied and a timeout was done. The patient's name, date of , procedure type, procedure site, allergies to medications, preoperative antibiotic, and DVT prophylaxis were all reviewed. Fire risk was assessed. The abdomen was prepped and draped in a sterile surgical fashion. 0.5% Bupivacaine mixed with exparel was injected into the dermis just under the umbilicus. A 5 cm incision was made with a 10 blade under the umbilicus. Dissection was done with cautery through the subcutaneous tissues down to the fascia. The hernia defect was identified and measured 2 inches x 2 inches. The hernia sac was opened and the peritoneum was swept for adhesions. no adhesions were noted. The hernia sac was large and was removed from the subcutaneous tissues with cautery. A 6 inch round mesh was then placed under the peritoneum and secured in 4 quarters with 2-0 Proline. The rest of the edge was secured with tacks circumferentially. Once the mesh was secured the tissues were irrigated with some normal saline. No bleeding was identified. The fascia was closed over the mesh with 0 vicryl running suture. 2-0 Vicryl was used to secure the umbilicus down to the fascia. The subcutaneous tissue was re-approximated with 2-0 vicryl. The dermis was re-approximated with a running 4-0 Vicryl. The skin was cleaned and dried and skin affix was applied. A small YSABEL dressing was applied for seroma control. The patient was woken up and taken back to recovery in stable condition. There were no immediate complications. Sponge, instrument and needle counts were correct at the end of the case x2.
--- NOTE | 2021-08-25 07:15 | PDOC.DSDIS_ITS ---
Discharge Plan Disposition Patient Disposition: HOME Condition: Good Discharge Details Reason For Visit: umbilical hernia Attending Provider: Jolanta Wu Primary Care Provider: Nisha Samano Home Meds and New Rx's Prescriptions: New tramadol 50 mg Tablet 50 mg PO Q6H PRN PRN (Reason: Pain) Qty: 14 RF: 0 Continued simvastatin 20 mg tablet 20 mg PO QHS RF: 0 losartan 50 mg tablet 50 mg PO HS RF: 0 chlorthalidone 25 mg tablet 25 mg PO HS RF: 0 Caltrate 600-D Plus Minerals 600 mg calcium- 800 unit-50 mg tablet 1 tab PO DAILY RF: 0 acetaminophen [Tylenol] 325 mg Capsule 650 mg PO ONCE PRNRF: 0 cannabidiol 100 mg/mL Solution 1 RF: 0 Stool Softener 50 mg Capsule 50 mg PO DAILY RF: 0 Discharge Instructions Additional Instructions: Activity at Home after surgery: 1. Make sure you walk outside at least 4 times per day 2. You should be able to climb a flight of stairs 3. No driving while in pain or taking pain medications 4. No strenuous activity or heavy lifting for 4 weeks (open surgery) Diet, Nutrition, & wound healin. Avoid alcohol until after you are recovered from your surgery 2. Make sure to eat plenty of lean protein (meat, fish, eggs, cottage cheese, beans) 3. Eat a variety of fruits and vegetables. Eat plenty of high fiber foods to avoid constipation. 4. Drink plenty of liquids to stay hydrated and avoid constipation Pain Medications: 1. Tylenol 650mg every 6 hours as needed and Ibuprofen 600 mg every 6 hours as needed. You may alternate between the 2 medications every 3 hours 2. If a narcotic has been prescribed take as directed only for breakthrough pain For Constipation: 1. Take Milk of Magnesia or MiraLax as needed for constipation Other: 1. You may shower daily. Do not scrub the incisions 2. Do not soak the incisions for 1 week 3. You may alternate ice and heat as needed for pain and swelling Wound Care: 1. Keep the incisions clean and dry Please call our office if you develop: 1. Fevers >101.5 2. Nausea or Vomiting 3. Worsening pain 4. Redness and thick discharge from the wounds If after hours please call the Hospital at and ask to speak to the on-call surgeon Referrals: Jolanta Wu MD [ [facility] STAFF PHYSICIAN] - 09/10/21 9:00 am Activity:: as above Diet:: As Tolerated Discharge Orders Discharge Orders: Discharge Order (Routine); Ordered 08/25/21 Ordered By: Jolanta Wu DS: Diagnosis Discharge Diagnosis (1) Umbilical hernia: Status: Acute
--- NOTE | 2021-08-25 07:16 | W.ANESPRE ---
General Info Date of Service Date Performed: 08/25/21 Height: 5 ft 4 in Weight: 90.1 kg Body Mass Index (BMI): 34.0 Surgical Procedure: Operation Date: 08/25/21 07:40 Proposed Procedures Side Surgeon p Hernia Umbilical Laparoscopic with mesh Jolanta Wu MD Meds Allergies and Home Medications Allergies Allergy/AdvReac Type Severity Reaction Status Date / Time lisinopril AdvReac Unknown Verified 08/25/21 06:38 Home Medication Medication Instructions Recorded losartan 50 mg tablet 50 mg PO HS 12/12/18 simvastatin 20 mg tablet 20 mg PO QHS 12/12/18 calcium 600 mg-D3 800 unit-mag11 1 tab PO DAILY 06/29/21 50 dv-sylk-cfzmop-otoniel-s.borat tablet chlorthalidone 25 mg tablet 25 mg PO HS tab 06/29/21 acetaminophen [Tylenol] 650 mg PO ONCE PRN 08/25/21 cannabidiol 1 08/25/21 docusate sodium [Stool Softener] 50 mg PO DAILY 08/25/21 Current Visit Medications: Current Medications Generic Name Dose Route Start Last Admin Trade Name Freq PRN Reason Stop Dose Admin Acetaminophen 1,000 mg 08/25/21 06:00 08/25/21 06:51 Acetaminophen 500 Mg Tab PO 09/23/21 23:59 1,000 mg PREOP JIMMIE Administration Celecoxib 200 mg 08/25/21 06:00 08/25/21 06:51 Celecoxib 200 Mg Cap PO 09/23/21 23:59 200 mg PREOP JIMMIE Administration Ampicillin Sodium/Sulbactam 100 mls @ 200 mls/hr 08/25/21 06:00 Sodium 3 gm/ Sodium Chloride IVPB 08/25/21 18:00 PREOP JIMMIE Ringer's Solution 1,000 mls @ 80 mls/hr 08/25/21 06:00 08/25/21 07:05 IV 09/23/21 23:59 80 mls/hr INFUSION JIMMIE Administration IV Miscellaneous Supplies 1 each 08/25/21 06:00 Iv Access IV 09/23/21 23:59 DIRECTED JIMMIE Sodium Chloride 0 ml 08/25/21 06:00 Normal Saline Flush 10 Ml Syr IV 09/23/21 23:59 PRN PRN Sodium Chloride 0 ml 08/25/21 06:00 Normal Saline 10 Ml Vial IJ 09/23/21 23:59 DIRECTED PRN Sterile Water 0 ml 08/25/21 06:00 Water,Injection,Sterile 10 Ml Vial IJ 09/23/21 23:59 DIRECTED PRN PFSH Active Problems Active Problems: Problem Status Onset Code Umbilical hernia K42.9 Medical History Medical History Depression Dyslipidemia HTN (hypertension) Hypokalemia Intermittent palpitations Left ventricular hypertrophy Pt. states she is unaware of this. 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 reports ovaries removed also Tobacco Smoking/Tobacco Use Status: Never Alcohol Alcohol Intake: never Substance Use Substance use: Never Substance use type: does not use Details: CBD drops daily Vital Signs and Lab Results Vital Signs Most Recent Vital Signs in EMR: Most Recent Vital Signs Temp Pulse Resp BP Pulse Ox 36.3 C L 72 16 127/87 97 08/25/21 06:43 08/25/21 06:43 08/25/21 06:43 08/25/21 06:43 08/25/21 06:43 Lab Results Blood Type / Crossmatch: No Data to Display Complete Blood Count: No Data to Display Complete Metabolic Panel: No Data to Display Liver Function Panel: No Data to Display Coagulation Panel: No Data to Display Cardiac Panel: No Data to Display Arterial Blood Gas: No Data to Display Venous Blood Gas: No Data to Display Pancreas Panel: No Data to Display Thyroid Panel: No Data to Display Infectious Disease: Coronavirus (COVID-19)(PCR) Negative (Negative) 08/24/21 08:46 08/24/21 Coronavirus 2019 Source Nasal/Nares 08/24/21 08:46 08/24/21 Blood Cultures: No Data to Display Toxicology Panel: No Data to Display Anesthesia Assessment and Plan Anesthesia History Personal History: No History of Anesthesia Complications Family History: No Family History of Anesthesia Complications Exercise Tolerance Exercise Tolerance: Metabolic Equivalents>4 Pertinent Negatives Pertinent Negatives: No Symptoms of GERD, No Major Cardiovascular Symptoms or Complaints, No Major Pulmonary Symptoms or Complaints and No History of CVA/TIA Cardiac & Pulmonary Exam Cardiac Exam: Normal S1/S2 Heart Sounds Pulmonary Exam: Clear Bilateral Breath Sounds Implantable Cardiac Device Does patient have a Pacemaker or an ICD?: No Airway Exam Known Difficult Airway: No Mallampati Class: 3 Mouth Opening: Normal (> 3cm) Thyromental Distance: Greater than 3 cm Neck Range of Motion: Full ROM Neck Circumference: Normal Teeth Condition: Removable Dentures/Plates Upper (Full plate) and Removable Dentures/Plates Lower (Partial) ASA Classification ASA Score: ASA 2 Emergency Case?: No NPO Status NPO Status: NPO Clears >2 hours, Solids >8 hours Anesthesia Plan Resuscitation Status: Full Code Anesthesia Technique: General Anesthesia Airway Planned: Endotracheal Tube Monitors Used: Standard Monitors
[2021-08-25] MEDS: AMPICILLIN/SULBACTAM 3 GM in Normal Saline 100 ML IVPB (07:43)
[2021-08-25] MEDS: Bupivacaine 0.25% Pres-Free 30 ML VIAL (08:22)
[2021-08-25] MEDS: Bupivacaine LIPOSOME/PF 133 MG/10 ML VIAL IJ (08:22)
[2021-08-25] MEDS: fentaNYL 100 MCG/2 ML VIAL IVP ×2 (09:27→09:48)
[2021-08-25] MEDS: traMADol 50 MG TAB PO (10:57)
--- NOTE | 2021-08-25 11:55 | W.ANESPOSTOP ---
Postoperative Evaluation Date, Time and Location Date Performed: 08/25/21 Time Performed: 11:56 Patient Location: Day Surgery Unit Vital Signs Most Recent Imported Vital Signs: Most Recent Vital Signs Temp Pulse Resp BP Pulse Ox 36.4 C L 58 L 17 106/73 96 08/25/21 10:40 08/25/21 10:40 08/25/21 10:40 08/25/21 10:40 08/25/21 10:40 Pain Score Most Recent Pain Score: Most Recent Pain Score Pain Level 6 08/25/21 11:02 Assessment Mental Status: Awake (Alert & Oriented to Patient Baseline) Airway and Respiratory Function: Patent airway with normal (patient baseline) respiratory exam Cardiovascular Function: Hemodynamically Stable Hydration Status: Adequately Hydrated Nausea & Vomiting: No Nausea or Vomiting Pain: Pain is tolerable per patient (Rates pain 3/10 and tolerable) Peripheral Nerve Block: Patient did not receive a nerve block
== END 2021-08-25 11:59 | disposition home or self-care (01) ==
PROVIDERS: PCP Nurse Practitioner Family; Visit Provider Surgery
PROC: (CPT 49650; principal; 2021-08-25 07:30)
DX: K42.9 Umbilical hernia without obstruction or gangrene (principal); E78.5 Hyperlipidemia, unspecified; F32.A Depression, unspecified
CPT/HCPCS: 49652; C1781; J0295; J1885; J2001; J2405; J2704; J3010

== ENCOUNTER 2021-08-29 11:18 | Emergency (ER) | payer MEDICARE, SELFPAY ==
[2021-08-29 11:36] LABS: Clarity Clear (Clear)
[2021-08-29 11:50] LABS: Bacteria Few HPF (Negative); C & S Indicated? No/Sq. Contamination; Casts Negative LPF (Negative); Crystals Negative HPF (Negative); Epithelial Cells Many HPF (Negative); Mucus Moderate (Negative)
--- NOTE | 2021-08-29 12:30 | W.ED.GENAD ---
Discharge Plan Disposition Patient Disposition: HOME Condition: Stable Discharge Details Clinical Impression: Flank pain, Urinary frequency Primary Care Provider: Nisha Samano ED Provider: Lisha Ervin Home Meds and New Rx's Prescriptions: New cephalexin 500 mg capsule 500 mg PO BID 14 Days Qty: 28 RF: 0 Continued simvastatin 20 mg tablet 20 mg PO QHS RF: 0 losartan 50 mg tablet 50 mg PO HS RF: 0 chlorthalidone 25 mg tablet 25 mg PO HS RF: 0 Caltrate 600-D Plus Minerals 600 mg calcium- 800 unit-50 mg tablet 1 tab PO DAILY RF: 0 acetaminophen [Tylenol] 325 mg Capsule 650 mg PO QID RF: 0 cannabidiol 100 mg/mL Solution 1 RF: 0 Stool Softener 50 mg Capsule 50 mg PO DAILY RF: 0 tramadol 50 mg Tablet 50 mg PO Q6H PRN PRN (Reason: Pain) Qty: 14 RF: 0 Discharge Instructions Instructions: Flank Pain (ED), Urinary Urgency and Frequency (DC) Additional Instructions: Drink plenty of fluids and get plenty of rest. Take the antibiotics as directed until finished. Follow-up with your primary care doctor in 1 week. Return to the emergency department with any worsening or new concerning symptoms such as fever, persistent vomiting, worsening pain or any other concerns. Discharge Data Discharge Date/Time-TO BE ENTERED AT DEPARTURE: 08/29/21 14:43 Discharge Physician: Lisha Ervin Medical Decision Making 71-year-old female with a history of hypertension, hyperlipidemia, depression who is 3 days status post umbilical hernia repair presents with left flank pain radiating to left side of her abdomen and urinary frequency for 2 days. Patient appears comfortable and nontoxic. Abdominal dressing with drain in place is clean dry and intact and her abdomen is nontender without distention. No rash or cellulitis noted to back or abdomen. Discussed with patient that her symptoms may be due to UTI or pyelonephritis, but as her initial urine sample notes minimal WBCs and appears contaminated we need a repeat urine sample at minimum for repeat analysis. Patient is refusing straight cath. Also discussed that her symptoms could be due to kidney stone, shingles, electrolyte abnormality or LOYDA. Discussed with pt that I would recommend placing an IV, checking screening labs and CT renal colic but patient declines and states she would only give a repeat urine sample at this time and does not feel she needs labs or imaging at this time. Discussed the risks of missed or delayed diagnoses resulting in or disability and she understands and demonstrates capacity to make decisions. As she denies any significant abdominal pain near her surgical site, denies fever, vomiting or change in bowel habits, do not suspect her symptoms are related to a postop complication. Her case was discussed with Dr. Myers and agrees that if she has no significant abdominal pain near her surgical site, vomiting or fever, appears less likely a postop complication and no indication for abdominal CT imaging at this time. Repeat urine sample no significant change and again notes 3-5 WBCs but appears contaminated. Patient again is declining straight cath. Patient states she would prefer treatment with antibiotics as she feels that her symptoms are consistent with UTI or kidney infection. Will treat with Keflex for 14 days as she is complaining of nausea and flank pain for potential pyelonephritis. She was given a dose of Keflex here, bottle to go and a prescription sent electronically to her pharmacy Advised to follow up with the primary care doctor for re-evaluation. Usual and customary return precautions given prior to discharge. Medical Records Medical records reviewed: Yes I reviewed the patient's medical records. Lab Data Lab results reviewed: Yes I reviewed the patient's lab results. Labs: Laboratory Tests Range/Units 08/29/21 08/29/21 08/29/21 11:28 12:42 12:45 Urine Color (Yellow) [place] Urine Clarity (Clear) Clear Clear Urine pH (5-8) Ur Specific [place] (1.005-1.025) 1.030 H 1.025 Urine Protein (Negative) mg/dL Urine Ketones (Negative) mg/dL Urine Blood (Negative) Urine Nitrite (Negative) Urine Bilirubin (Negative) Urine Urobilinogen (Up TO 0.2) EU/dL Ur Leukocyte Esterase (Negative) Urine RBC (0-2) HPF 3-5 H 3-5 H Urine WBC (0-5) HPF 3-5 3-5 Ur Epithelial Cells (Negative) HPF Many Many Urine Crystals (Negative) HPF Negative Negative Urine Bacteria (Negative) HPF Few Moderate Urine Casts (Negative) LPF Negative Negative Urine Mucus (Negative) Moderate Trace Ur Culture Indicated? No/Sq. Contamination No/Sq. Contamination Urine Glucose (Negative) mg/dL HPI General Mode of arrival: ambulatory. Date/Time Provider Initiated Documentation: 08/29/21 11:22. Limitations to Documentation: no limitations. Information obtained by: patient. HPI Narrative: Patient is a 71-year-old female who is 3 days status postumbilical hernia repair with no reported complications presents with left-sided flank pain and urinary frequency for the past 2 days. Patient states she has not called her surgeon regarding her symptoms as she thought her symptoms were likely due to a bladder or kidney infection. She states he has had multiple bladder and kidney infections in the past feels similar. She states there is a aching pain in her left flank which radiates around to the left mid side of her abdomen. She denies any pain around her umbilicus or surgical site. Patient states she has been taking Pyridium [id number] for pain with some relief. She denies any dysuria, urgency, hematuria. She admits to occasional nausea but denies any fever. Related Data Home Medications Medication Instructions Recorded Confirmed losartan 50 mg tablet 50 mg PO HS 12/12/18 08/29/21 simvastatin 20 mg tablet 20 mg PO QHS 12/12/18 08/29/21 calcium 600 mg-D3 800 unit-mag11 1 tab PO DAILY 06/29/21 08/29/21 50 mu-[id number]-otoniel-[id number].borat tablet chlorthalidone 25 mg tablet 25 mg PO HS tab 06/29/21 08/29/21 Stool Softener 50 mg PO DAILY 08/25/21 08/29/21 acetaminophen [Tylenol] 650 mg PO QID 08/25/21 08/29/21 cannabidiol 1 08/25/21 tramadol 50 mg PO Q6H PRN PRN #14 tab 08/25/21 08/29/21 cephalexin 500 mg PO BID 14 Days #28 cap 08/29/21 Previous Rx's Medication Instructions Recorded tramadol 50 mg PO Q6H PRN PRN #14 tab 08/25/21 cephalexin 500 mg PO BID 14 Days #28 cap 08/29/21 Allergies Allergy/AdvReac Type Severity Reaction Status Date / Time lisinopril AdvReac Unknown Verified 08/29/21 11:35 General Stated Complaint: FlankPain FERNANDO: 3 Review of Systems All systems reviewed & are unremarkable except as noted in HPI and below Constitutional Constitutional: Reports as per HPI, Denies chills and Denies fever(s) Eyes Eyes: Denies blurry vision ENT Ears, Nose, Mouth, and Throat: Denies dizziness, Denies sore throat and Denies throat swelling Cardiovascular Cardiovascular: Denies chest pain and Denies dyspnea Respiratory Respiratory: Denies cough and Denies dyspnea Gastrointestinal Gastrointestinal: Reports abdominal pain, Denies diarrhea and Denies vomiting Genitourinary Genitourinary: Denies hematuria, Denies dysuria and Reports other (urinary frequency) Musculoskeletal Musculoskeletal: Reports back pain and Denies numbness Integumentary/Breasts Skin/Breast: Denies lesions and Denies rash Neurologic Neurologic: Denies dizziness, Denies localized weakness and Denies numbness Allergic/Immunologic Allergic/Immunologic: Denies throat swelling PFSH All Active Problems (Updated 08/29/21 @ 14:02 by Lisha Ervin DO) Flank pain (Acute) Urinary frequency (Acute) Umbilical hernia (Acute) Medical History Depression Dyslipidemia HTN (hypertension) Hypokalemia Intermittent palpitations Left ventricular hypertrophy Pt. states she is unaware of this. 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 reports ovaries removed also Social History Smoking/Tobacco Use Status: Never Smoking risk assessment performed?: Yes Alcohol Intake: never Drug use: Never Substance use type: does not use Details: CBD drops daily Do you feel safe at home: Yes Do you feel safe in your relationship?: Yes Exam Const General: cooperative, healthy appearing and no acute distress [facility] Head: normal to inspection Face and sinus: normal facial exam Eyes General: appearance normal, both eyes and all related structures EOM: EOM intact bilaterally Neck Neck: normal visual inspection and No submandibular swelling Lymphatic: no lymphadenopathy noted Chest Chest: normal inspection of the chest and no tenderness Resp Effort & Inspection: normal respiratory effort and able to speak in complete sentences Auscultation: clear to auscultation bilaterally Cardio Rate: regular rate Rhythm: regular rhythm GI Inspection: normal to inspection and other (Abdominal dressing with drain in place clean, dry and intact) Palpation: soft, not firm, not rigid and nontender Auscultation: normal bowel sounds Back/Spine/Pelvis Back: No no CVA tenderness Thoracic/Lumbar Spine: thoracic and lumbar spine normal to inspection Pelvis: no pain with anterior-posterior compression Skin General skin exam: no rashes or lesions noted Neuro General: patient alert, patient awake and patient oriented x3 Cognition: normal cognition Speech: speech normal Motor: muscle tone normal throughout Sensory Exam: no sensory deficits noted Extrem General: normal to inspection, full ROM, capillary refill normal, no calf tenderness bilaterally and no edema Psych Appearance: grossly normal Mental Status: mental status grossly normal Speech and Movement: speech and movement normal Affect: normal affect Course Vital Signs Vital signs: Respiratory Effort Non-Labored 08/29/21 11:33 Pain Level 5 08/29/21 11:34 Lab/Test Results Lab/Test Results: Laboratory Tests Range/Units 08/29/21 11:28 Urine Color (Yellow) [place] Urine Clarity (Clear) Clear Urine pH (5-8) Ur Specific [place] (1.005-1.025) 1.030 H Urine Protein (Negative) mg/dL Urine Ketones (Negative) mg/dL Urine Blood (Negative) Urine Nitrite (Negative) Urine Bilirubin (Negative) Urine Urobilinogen (Up TO 0.2) EU/dL Ur Leukocyte Esterase (Negative) Urine RBC (0-2) HPF 3-5 H Urine WBC (0-5) HPF 3-5 Ur Epithelial Cells (Negative) HPF Many Urine Crystals (Negative) HPF Negative Urine Bacteria (Negative) HPF Few Urine Casts (Negative) LPF Negative Urine Mucus (Negative) Moderate Ur Culture Indicated? No/Sq. Contamination Urine Glucose (Negative) mg/dL
[2021-08-29 13:14] LABS: Clarity Clear (Clear); Specific Gravity 1.025 (1.005-1.025)
[2021-08-29 13:25] LABS: Bacteria Moderate HPF (Negative); Crystals Negative HPF (Negative); Epithelial Cells Many HPF (Negative)
[2021-08-29 13:26] LABS: C & S Indicated? No/Sq. Contamination; Casts Negative LPF (Negative); Mucus Trace (Negative)
[2021-08-29 13:33] VITALS: BP 148/94; PULSE 69; TEMP 37; O2SAT 95
[2021-08-29] MEDS: Cephalexin 500 MG CAP, 4 CAPS/BTL PO (14:05)
[2021-08-29] MEDS: Cephalexin 500 MG CAP PO (14:05)
== END 2021-08-29 14:43 | disposition home or self-care (01) ==
PROVIDERS: Emergency Provider Physician Assistant; PCP Nurse Practitioner Family
DX: R10.9 Unspecified abdominal pain (principal); M54.50 Low back pain, unspecified; R35.0 Frequency of micturition; Z98.890 Other specified postprocedural states
CPT/HCPCS: 99283; 81003; 81015

== ENCOUNTER → 2021-08-31 13:53 | Outpatient (BNVA) | payer MEDICARE, SELFPAY | PROVIDERS: PCP Nurse Practitioner Family; Referring Provider Nurse Practitioner Family; Visit Provider Surgery | DX: Z48.815 Encounter for surgical aftercare following surgery on the digestive system (principal) ==

== ENCOUNTER 2021-09-20 09:47 | Emergency (ER) | payer MEDICARE, SELFPAY ==
[2021-09-20 09:52] VITALS: BP 166/91; PULSE 85; RESP 18; TEMP 36.6; O2SAT 96
--- NOTE | 2021-09-20 09:59 | W.ED.GENAD ---
Discharge Plan Disposition Patient Disposition: HOME Condition: Stable Discharge Details Clinical Impression: Abdominal pain, Seroma after procedure Primary Care Provider: Nisha Samano ED Provider: Dieudonne Corcoran Home Meds and New Rx's Prescriptions: Continued simvastatin 20 mg tablet 20 mg PO QHS RF: 0 losartan 50 mg tablet 50 mg PO HS RF: 0 chlorthalidone 25 mg tablet 25 mg PO HS RF: 0 Caltrate 600-D Plus Minerals 600 mg calcium- 800 unit-50 mg tablet 1 tab PO DAILY RF: 0 acetaminophen [Tylenol] 325 mg Capsule 650 mg PO QID RF: 0 cannabidiol 100 mg/mL Solution 1 RF: 0 Stool Softener 50 mg Capsule 50 mg PO DAILY RF: 0 tramadol 50 mg Tablet 50 mg PO Q6H PRN PRN (Reason: Pain) Qty: 14 RF: 0 Discharge Instructions Instructions: Abdominal Pain (ED) Additional Instructions: Your work-up today does not reveal any obvious emergent process. Your CT scan reveals a seroma. I personally spoke with your surgeon, Dr. Wu. We reviewed your case today as well as your CT. She will be happy to see you in her office on Monday if your symptoms are persisting. Please watch for new or worsening symptoms and return to the ER for any concerns Referrals: Jolanta Wu MD [ [facility] STAFF PHYSICIAN] - Medical Decision Making 71-year-old female presents to the ER for intermittent right lower quadrant discomfort for the past 2 months. She had a periumbilical hernia repair on 08-25-21 which she reports went well. She reports the pain was severe last night but now is only dull and aching 1 out of 10. She denies any fever, nausea, vomiting, diarrhea, black tarry stools or bright red blood in her. Patient states that she was hoping after her hernia repair that her right lower quadrant would go away but it has not. Clinically she appears well, nontoxic. Differential includes but not excluded to appendicitis, small bowel obstruction, UTI, pyelonephritis, renal stone, postsurgical complication, musculoskeletal strain. Plan is to obtain IV access, obtain routine laboratory values, and CT imaging of her abdomen and pelvis with IV contrast. Laboratory values do not reveal any obvious emergent process. Awaiting CT imaging CT imaging reveals likely seroma, cannot include abscess. Multiple incidental findings, nothing acute. Clinically she is without fever, no evidence of leukocytosis, low suspicion for acute abscess. I will discuss the findings with our surgeon on-call, Dr. Wu. She feels as though the patient can be safely discharged from the ER and she will be happy to follow the patient in the office on Monday and if her pain persist she will drain the seroma. This plan was discussed with the patient. She is comfortable with this plan and has no additional questions or concerns. Standard discharge and return instructions given This documentation was generated using [employer] system, please disregard any oddities of phrase or misspellings. Medical Records Medical records reviewed: Yes I reviewed the patient's medical records. Imaging Data Radiologic Study: Attestation: I personally reviewed and interpreted this imaging study as follows: Imaging: X-Ray Radiologist's impression: Exam(s) CT ABDOMEN PELVIS W EXAM: CT ABDOMEN PELVIS W CLINICAL HISTORY: RLQ pain. TECHNIQUE: Imaging Protocol: Axial computed tomography images with coronal and sagittal reformatted images were created and reviewed CONTRAST MATERIAL: Intravenous: Omnipaque 100cc Oral: None COMPARISON: CT CT ABDOMEN PELVIS W from 12/19/[address] ABDOMEN PELVIS W from 03/02/2019 FINDINGS: VISUALIZED LUNG BASES: Mild infiltrate is noted in the medial aspect of the posterior basal segment of the left lower lobe. No pleural effusion.. ABDOMEN: There is no ascites. LIVER: There are no focal hepatic lesions evident . GALLBLADDER/BILIARY: The gallbladder is again noted be surgically absent. CBD diameter is upper normal. PANCREAS: No evidence of new significant pancreatic mass. There is pancreatic tissue again noted extending cephalad off the body the pancreas which is unchanged from at least 2019 and therefore benign. Probably developmental variant. Pancreatic duct is not dilated. SPLEEN: Spleen is not enlarged. No obvious intrasplenic lesions. Splenic and portal veins are patent. ADRENALS: There are no significant adrenal masses. KIDNEYS:Previously present large cyst in the superior aspect of the left kidney is again noted. This measures 6 cm wide by 5.5 cm AP by 4 cm craniocaudal and exhibits some thin benign-appearing peripheral calcification which appear stable. There is also a calculus in the left kidney subjacent to this cyst which measures 5 x 3 millimeters, unchanged in size and position in the opposite-right kidney there is a benign cortical cyst measuring 1 cm. Also another more medially located benign small cortical cyst measuring 0.7 cm. No calculi seen in the right kidney no hydronephrosis on either side. No hydroureter. No calculi seen in the nondistended urinary bladder. ABDOMINAL AORTA: Abdominal aorta is not enlarged. LYMPH NODES:There is no retroperitoneal nor paraaortic adenopathy. ABDOMINAL WALL: There is been interval anterior abdominal hernia repair. There are now fluid collections in the subcutaneous umbilical fat and within the anterior peritoneal cavity behind the mesh. The superficial fluid collection measures 2.5 cm wide by 2.4 cm AP by 5 cm craniocaudal. The collection within the anterior abdominal cavity is significantly thinner but measures 5-6 cm length and 5 cm wide and 1 cm AP. No gas seen within these collections. Adjacent transverse colon is collapsed. There are no small bowel loops presently located outside of the abdomen. GI: There is no evidence of bowel obstruction. No free air. PELVIS: GI: No evidence of appendicitis.Sigmoid diverticulosis noted. No evidence of obvious acute diverticulitis there diverticuli also seen in the left side of the colon below the level of the splenic flexure. Transverse colon is collapsed. LYMPH NODES: There is no intrapelvic nor inguinal adenopathy. REPRODUCTIVE: The uterus appears somewhat different than prior, presently appearing retroverted. Measures 4 cm AP by 4.8 cm wide by 2 2.5 cm craniocaudal. Ovaries are again not identified. URINARY BLADDER: No calculi nor obvious masses evident OSSEOUS: No significant osseous lesions. Multilevel degenerative disc disease in the lower lumbar spine IMPRESSION: 1. Compared to prior CT scans listed above there has been interval repair of anterior abdominal hernia. Although there is no hernia at this time, there are fluid collections in both the subcutaneous fat and anterior intraperitoneal cavity just behind the mesh repair site. Measurements of these collections are as above. A either represent postoperative seromas but cannot exclude abscesses, despite absence of gas within these collections. Correlation with clinical findings recommended. 2. Large peripherally calcified cyst again noted in the superior aspect left kidney and significantly smaller 2 cortical cysts noted in the right kidney. There is also a nonobstructive calculus in left kidney immediately subjacent to the inferior aspect of the cysts, this calculus again measures 5 x 3 millimeter. There are no calculi in the opposite-right kidney. No hydronephrosis on either side. No calculi in the urinary bladder. 3. Sigmoid diverticulosis. No obvious acute diverticulitis. 4. On today's study the uterus appears retroverted, not previously the case. No abnormal adnexal masses. No obvious large uterine fibroids. Lab Data Lab results reviewed: Yes I reviewed the patient's lab results. Labs: Laboratory Tests Range/Units 09/20/21 09/20/21 09/20/21 10:05 10:05 10:15 WBC (4.4-10.8) 10^3/uL 7.35 RBC (3.93-5.22) 10^6/uL 4.53 Hgb (11.2-15.7) g/dL 14.5 Hct (36.0-46.0) % 42.2 MCV (80-95) fL 93.2 MCH (27.0-33.0) pg 32.0 MCHC (32.0-36.0) % 34.4 RDW (11.7-14.6) % 12.0 Plt Count (130-400) 10^3/uL 272 MPV (8.0-11.0) fL 9.9 Immature Gran % 0.1 Neutrophils % 64.4 Lymphocytes % 25.3 Monocytes % 8.3 Eosinophils % 1.2 Basophils % 0.7 Nucleated RBC % % 0 Absolute Neutrophils (1.2-6.7) 10^3/uL 4.73 Absolute Lymphocytes (1.2-3.4) 10^3/uL 1.86 Absolute Monocytes (0.1-0.8) 10^3/uL 0.61 Absolute Eosinophils (0.0-0.7) 10^3/uL 0.09 Absolute Basophils (0.0-0.2) 10^3/uL 0.05 Sodium (136-145) mmol/L 139 Potassium (3.5-5.1) mmol/L 3.3 L Chloride (98-107) mmol/L 101 Carbon Dioxide (21.0-32.0) mmol/L 30.9 Anion Gap (3-11) mmol/L 7.1 BUN (7-18) mg/dL 25 H Creatinine (0.55-1.02) mg/dL 0.6 Estimated GFR/1.73 m2 (mL/min/1.73m2) >= 60.00 Glucose (74-106) mg/dL 137 H Calcium (8.5-10.1) mg/dL 9.6 Total Bilirubin (0.2-1.0) mg/dL 0.5 AST (15-37) U/L 21 ALT (14-59) U/L 29 Alkaline Phosphatase (46-116) U/L 90 Total Protein (6.4-8.2) g/dL 8.3 H Albumin (3.4-5.0) g/dL 4.0 Lipase (73-393) U/L 100 Urine Color (Yellow) Yellow Urine Clarity (Clear) Clear Urine pH (5-8) 6.5 Ur Specific [place] (1.005-1.025) >= 1.030 H Urine Protein (Negative) mg/dL Negative Urine Ketones (Negative) mg/dL Negative Urine Blood (Negative) Small H Urine Nitrite (Negative) Negative Urine Bilirubin (Negative) Negative Urine Urobilinogen (Up TO 0.2) EU/dL 0.2 Ur Leukocyte Esterase (Negative) Negative Urine RBC (0-2) HPF 3-5 H Urine WBC (0-5) HPF 0-2 Ur Epithelial Cells (Negative) HPF Few Urine Crystals (Negative) HPF Negative Urine Bacteria (Negative) HPF Few Urine Casts (Negative) LPF Negative Urine Mucus (Negative) Trace Ur Culture Indicated? No Urine Glucose (Negative) mg/dL Negative HPI General Mode of arrival: ambulatory. Date/Time Provider Initiated Documentation: 09/20/21 09:49. Limitations to Documentation: no limitations. Information obtained by: patient. HPI Narrative: This is a 71-year-old female, past medical history of depression, hypertension, umbilical hernia repair on 08-25-21, presenting to the ER today for evaluation of right lower quadrant pain that has been intermittent for the past couple of months. She states last night the pain was severe a 9 or 10 out of 10 but right now is very mild more like a 1 out of 10. She denies recent illness, fever, chest pain, shortness of breath, nausea, vomiting. Patient reports that she typically fluctuate between constipation and loose stools which is her baseline, reports baseline loose stools this morning. Denies any pain that radiates to her back, dysuria, hematuria, vaginal bleeding or discharge. She has not taken any medication for her symptoms. Related Data Home Medications Medication Instructions Recorded Confirmed losartan 50 mg tablet 50 mg PO HS 12/12/18 09/20/21 simvastatin 20 mg tablet 20 mg PO QHS 12/12/18 09/20/21 calcium 600 mg-D3 800 unit-mag11 1 tab PO DAILY 06/29/21 09/20/21 50 [id number]-otoniel-[id number].borat tablet chlorthalidone 25 mg tablet 25 mg PO HS tab 06/29/21 09/20/21 Stool Softener 50 mg PO DAILY 08/25/21 09/20/21 acetaminophen [Tylenol] 650 mg PO QID 08/25/21 09/20/21 cannabidiol 1 08/25/21 08/31/21 tramadol 50 mg PO Q6H PRN PRN #14 tab 08/25/21 08/31/21 Previous Rx's Medication Instructions Recorded tramadol 50 mg PO Q6H PRN PRN #14 tab 08/25/21 Allergies Allergy/AdvReac Type Severity Reaction Status Date / Time lisinopril AdvReac Unknown Verified 09/20/21 09:56 General Stated Complaint: Abd Prob FERNANDO: 3 Review of Systems Constitutional Constitutional: Denies fever(s) Cardiovascular Cardiovascular: Denies chest pain and Denies dyspnea Respiratory Respiratory: Denies cough and Denies dyspnea Gastrointestinal Gastrointestinal: Reports abdominal pain, Denies melena, Denies hematochezia, Reports constipation, Denies diarrhea, Reports loose stools, Denies nausea and Denies vomiting Genitourinary Genitourinary: Denies dysuria Musculoskeletal Musculoskeletal: Denies back pain Integumentary/Breasts Skin/Breast: Denies erythema and Denies rash Hematologic/Lymphatic Hematologic/Lymphatic: Denies easy bleeding and Denies easy bruising PFSH All Active Problems (Updated 09/20/21 @ 12:05 by GENE Love) Abdominal pain (Acute) Seroma after procedure (Acute) Flank pain (Acute) Urinary frequency (Acute) Medical History Depression Dyslipidemia HTN (hypertension) Hypokalemia Intermittent palpitations Left ventricular hypertrophy Pt. states she is unaware of this. 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 reports ovaries removed also Social History Smoking/Tobacco Use Status: Never Smoking risk assessment performed?: Yes Alcohol Intake: never Drug use: Never Substance use type: does not use Details: CBD drops daily Do you feel safe at home: Yes Do you feel safe in your relationship?: Yes Exam Const General: cooperative, healthy appearing, comfortable and no acute distress Orientation: alert and awake HENWA Head: normal to inspection, normocephalic and atraumatic Face and sinus: normal facial exam Mouth: moist mucous membranes Eyes General: appearance normal, both eyes and all related structures Conjunctivae: conjunctivae normal Neck Neck: normal visual inspection, trachea midline and supple Resp Effort & Inspection: normal respiratory effort and able to speak in complete sentences Auscultation: clear to auscultation bilaterally Cardio Rate: regular rate Rhythm: regular rhythm GI Palpation: soft, not firm, no guarding, no pulsatile masses and nontender Auscultation: normal bowel sounds Other: There is a well healing periumbilical hernia incision. No induration, fluctuance, erythema, warmth, tenderness Back/Spine/Pelvis Back: No back tenderness Skin General skin exam: no rashes or lesions noted Neuro General: patient alert, patient awake, moves all extremities and no focal motor deficits Cognition: normal cognition Speech: speech normal Gait: normal gait Sensory Exam: no sensory deficits noted Psych Appearance: grossly normal Mental Status: mental status grossly normal Course Vital Signs Vital signs: Vital Signs Temperature 36.6 C 09/20/21 09:52 Pulse 85 09/20/21 09:52 Respiratory Rate 18 09/20/21 09:52 Blood Pressure 166/91 H 09/20/21 09:52 Pulse Oximetry 96 09/20/21 09:52 Temperature 36.6 C 09/20/21 09:52 Temperature Source Temporal Artery Scan 09/20/21 09:52 Pulse 85 09/20/21 09:52 Respiratory Rate 18 09/20/21 09:52 Blood Pressure 166/91 H 09/20/21 09:52 Blood Pressure Position Sitting 09/20/21 09:52 Pulse Oximetry 96 09/20/21 09:52 Oxygen Delivery Method Room Air 09/20/21 09:52 Oxygen Flow Rate 0 09/20/21 09:52
[2021-09-20 10:13] LABS: Abs Immature Grans 0.01 10^3/uL (0.0-0.06); Absolute Basophil Count 0.05 10^3/uL (0.0-0.2); Absolute Eosinophil Count 0.09 10^3/uL (0.0-0.7); Absolute Lymphocyte Count 1.86 10^3/uL (1.2-3.4); Absolute Monocyte Count 0.61 10^3/uL (0.1-0.8); Absolute Neutrophil Count 4.73 10^3/uL (1.2-6.7); Basophils % 0.7; Eosinophils % 1.2; HCT 42.2 % (36.0-46.0); HGB 14.5 g/dL (11.2-15.7); Immature Grans % 0.1; Lymphocytes % 25.3; MCHC 34.4 % (32.0-36.0); MCV 93.2 fL (80-95); MPV 9.9 fL (8.0-11.0); Monocytes % 8.3; Neutrophils % 64.4; Nucleated RBC 0 %; Platelet Count 272 10^3/uL (130-400); RBC 4.53 10^6/uL (3.93-5.22); RDW-SD 41.3 fL; WBC 7.35 10^3/uL (4.4-10.8)
[2021-09-20 10:20] LABS: Bilirubin Negative (Negative); Blood Small (Negative); Clarity Clear (Clear); Glucose Negative (Negative); Ketones Negative (Negative); Leukocyte Esterase Negative (Negative); Nitrite Negative (Negative); Specific Gravity >= 1.030 (1.005-1.025); Urobilinogen 0.2 EU/dL (Up TO 0.2); pH 6.5 (5-8)
[2021-09-20 10:29] LABS: Bacteria Few HPF (Negative); C & S Indicated? No; Casts Negative LPF (Negative); Crystals Negative HPF (Negative); Epithelial Cells Few HPF (Negative); Mucus Trace (Negative); WBC 0-2 HPF (0-5)
[2021-09-20 10:31] LABS: ALT 29 U/L (14-59); AST 21 U/L (15-37); Alkaline Phosphatase 90 U/L (46-116); Anion Gap 7.1 mmol/L (3-11); BUN 25 mg/dL (7-18); Bilirubin, Total 0.5 mg/dL (0.2-1.0); CO2 30.9 mmol/L (21.0-32.0); CREATININE 0.6 mg/dL (0.55-1.02); Calcium 9.6 mg/dL (8.5-10.1); Chloride 101 mmol/L (98-107); Glucose 137 mg/dL (74-106); Lipase 100 U/L (73-393); Potassium 3.3 mmol/L (3.5-5.1); Sodium 139 mmol/L (136-145); Total Protein 8.3 g/dL (6.4-8.2)
[2021-09-20] MEDS: Omnipaque 350 MG/ML 100 ML BTL IJ (11:03)
--- NOTE | 2021-09-20 11:07 | DI.CT_ITS ---
Exam(s) CT ABDOMEN PELVIS W EXAM: CT ABDOMEN PELVIS W CLINICAL HISTORY: RLQ pain. TECHNIQUE: Imaging Protocol: Axial computed tomography images with coronal and sagittal reformatted images were created and reviewed CONTRAST MATERIAL: Intravenous: Omnipaque 100cc Oral: None COMPARISON: CT CT ABDOMEN PELVIS W from 12/19/[address] ABDOMEN PELVIS W from 03/02/2019 FINDINGS: VISUALIZED LUNG BASES: Mild infiltrate is noted in the medial aspect of the posterior basal segment o f the left lower lobe. No pleural effusion.. ABDOMEN: There is no ascites. LIVER: There are no focal hepatic lesions evident . GALLBLADDER/BILIARY: The gallbladder is again noted be surgically absent. CBD diameter is upper norm al. PANCREAS: No evidence of new significant pancreatic mass. There is pancreatic tissue again noted ext ending cephalad off the body the pancreas which is unchanged from at least 2019 and therefore benign. Probably developmental variant. Pancreatic duct is not dilated. SPLEEN: Spleen is not enlarged. No obvious intrasplenic lesions. Splenic and portal veins are paten t. ADRENALS: There are no significant adrenal masses. KIDNEYS:Previously present large cyst in the superior aspect of the left kidney is again noted. This measures 6 cm wide by 5.5 cm AP by 4 cm craniocaudal and exhibits some thin benign-appearing periphe ral calcification which appear stable. There is also a calculus in the left kidney subjacent to this cyst which measures 5 x 3 millimeters, unchanged in size and position in the opposite-right kidney t here is a benign cortical cyst measuring 1 cm. Also another more medially located benign small corti jourdan cyst measuring 0.7 cm. No calculi seen in the right kidney no hydronephrosis on either side. No hydroureter. No calculi seen in the nondistended urinary bladder. ABDOMINAL AORTA: Abdominal aorta is not enlarged. LYMPH NODES:There is no retroperitoneal nor paraaortic adenopathy. ABDOMINAL WALL: There is been interval anterior abdominal hernia repair. There are now fluid collect ions in the subcutaneous umbilical fat and within the anterior peritoneal cavity behind the mesh. Th e superficial fluid collection measures 2.5 cm wide by 2.4 cm AP by 5 cm craniocaudal. The collectio n within the anterior abdominal cavity is significantly thinner but measures 5-6 cm length and 5 cm w [place] and 1 cm AP. No gas seen within these collections. Adjacent transverse colon is collapsed. The re are no small bowel loops presently located outside of the abdomen. GI: There is no evidence of bowel obstruction. No free air. PELVIS: GI: No evidence of appendicitis.Sigmoid diverticulosis noted. No evidence of obvious acute diverticu litis there diverticuli also seen in the left side of the colon below the level of the splenic flexur e. Transverse colon is collapsed. LYMPH NODES: There is no intrapelvic nor inguinal adenopathy. REPRODUCTIVE: The uterus appears somewhat different than prior, presently appearing retroverted. Arlene sures 4 cm AP by 4.8 cm wide by 2 2.5 cm craniocaudal. Ovaries are again not identified. URINARY BLADDER: No calculi nor obvious masses evident OSSEOUS: No significant osseous lesions. Multilevel degenerative disc disease in the lower lumbar spine IMPRESSION: 1. Compared to prior CT scans listed above there has been interval repair of anterior abdominal herni a. Although there is no hernia at this time, there are fluid collections in both the subcutaneous fa t and anterior intraperitoneal cavity just behind the mesh repair site. Measurements of these collec tions are as above. A either represent postoperative seromas but cannot exclude abscesses, despite a bsence of gas within these collections. Correlation with clinical findings recommended. 2. Large peripherally calcified cyst again noted in the superior aspect left kidney and significantly smaller 2 cortical cysts noted in the right kidney. There is also a nonobstructive calculus in left kidney immediately subjacent to the inferior aspect of the cysts, this calculus again measures 5 x 3 millimeter. There are no calculi in the opposite-right kidney. No hydronephrosis on either side. No calculi in the urinary bladder. 3. Sigmoid diverticulosis. No obvious acute diverticulitis. 4. On today's study the uterus appears retroverted, not previously the case. No abnormal adnexal ma sses. No obvious large uterine fibroids. RADIATION DOSE DELIVERED: 1,118.64mGy.cm Total DLP DATA REPOSITORY: All CT scans at this facility are submitted to the National Radiology Data Registry (NRDR) Dose Index Registry (DIR) with the [employer] (ACR). RADIATION OPTIMIZATION: All CT scans at this facility use at least one of these dose optimization te chniques: automated exposure control; mA and/or kV adjustment per patient size (includes targeted exa ms where dose is matched to clinical indication); or iterative reconstruction.
--- NOTE | 2021-09-20 12:15 | NUR.NOTE ---
Nursing Note: referral to [facility] for surgical assio.
== END 2021-09-20 12:25 | disposition home or self-care (01) ==
PROVIDERS: Emergency Provider Physician Assistant; PCP Nurse Practitioner Family
DX: R10.31 Right lower quadrant pain (principal); L76.34 Postprocedural seroma of skin and subcutaneous tissue following other procedure
CPT/HCPCS: 36415; 80053; 83690; 99285; 74177; 81003; 81015; 85025; 99283; J3490

== ENCOUNTER → 2021-09-24 10:30 | Outpatient (BNVA) | payer MEDICARE, SELFPAY | PROVIDERS: PCP Nurse Practitioner Family; Referring Provider Nurse Practitioner Family; Visit Provider Surgery | DX: R10.9 Unspecified abdominal pain (principal); K91.872 Postprocedural seroma of a digestive system organ or structure following a digestive system procedure ==

== ENCOUNTER 2021-09-27 13:24 | Emergency (ER) | payer MEDICARE, SELFPAY ==
[2021-09-27 13:33] VITALS: BP 163/104; PULSE 91; RESP 16; TEMP 36.5; O2SAT 96
[2021-09-27 13:47] LABS: Bilirubin Negative (Negative); Blood Trace-intact (Negative); Clarity Clear (Clear); Glucose Negative (Negative); Ketones Negative (Negative); Leukocyte Esterase Negative (Negative); Nitrite Negative (Negative); Specific Gravity 1.025 (1.005-1.025); Urobilinogen 0.2 EU/dL (Up TO 0.2)
[2021-09-27 13:58] LABS: Bacteria Negative HPF (Negative); C & S Indicated? No/Sq. Contamination; Casts Negative LPF (Negative); Crystals Negative HPF (Negative); Epithelial Cells Moderate HPF (Negative); Mucus Negative (Negative); RBC 0-2 HPF (0-2)
--- NOTE | 2021-09-27 14:00 | DI.CT_ITS ---
Exam(s) CT ABDOMEN PELVIS W EXAM: CT ABDOMEN PELVIS W CLINICAL HISTORY: right lower quad abd pain, recent hernia repair. TECHNIQUE: Imaging Protocol: Axial computed tomography images with coronal and sagittal reformatted images were created and reviewed CONTRAST MATERIAL: Intravenous: Omnipaque 100cc Oral: None COMPARISON: CT CT ABDOMEN PELVIS W from 09/20/2021 FINDINGS: VISUALIZED LUNG BASES: There is some nodular infiltrate in the medial right lung base medial basal se gment (series 5/image 1). It is not possible to determine if volume averaging with a vessel or true nodular infiltrate given that it is the 1st image on the slice series. ABDOMEN: There is no ascites. LIVER: There are no focal hepatic lesions evident . GALLBLADDER/BILIARY: Gallbladder is again noted be surgically absent. CBD is not dilated. PANCREAS: No evidence of pancreatic mass nor dilatation of the pancreatic duct. SPLEEN: Spleen is not enlarged. No obvious intrasplenic lesions. Splenic and portal veins are paten t. KIDNEYS: Previously described 6 by 6 cm cyst with peripheral calcification in the left kidney is agai n noted as is the subjacent calcification in an upper pole calyx of the left kidney. There are no ca lculi in the renal pelvis and there are no calculi in the nondilated left ureter below this level. T here is a tiny submillimeter calcification intimately associated with the lower most left ureter just above the UVJ, possibly significant. This is medial to a phlebolith at this level. There are no vi sible calculi in the urinary bladder. The bladder is not distended ADRENALS:No masses evident ABDOMINAL AORTA: Abdominal aorta is not enlarged. LYMPH NODES:There is no retroperitoneal nor paraaortic adenopathy. ABDOMINAL WALL: There is a subumbilical collection which is unchanged from the prior study. Amount o f fluid behind the mesh within the peritoneal cavity also appears unchanged. GI: There is no evidence of bowel obstruction, free air, nor abscess. PELVIS: GI: No evidence of appendicitis.Sigmoid diverticulosis. No obvious acute diverticulitisthere. There are diverticuli in the descending colon also noted which appear uncomplicated. LYMPH NODES: There is no intrapelvic nor inguinal adenopathy. REPRODUCTIVE: Uterus is retroverted. No abnormal adnexal masses. No free fluid in the pelvis. URINARY BLADDER: No calculi nor obvious masses evident OSSEOUS: No significant osseous lesions. IMPRESSION: 1. Again noted is evidence of anterior abdominal hernia repair. The fluid collection in the subcutan eous fat is again noted. The fluid in the abdominal cavity behind the mesh is also unchanged. Main considerations are for postop fluid collections such as abscess or seromas. Correlation with clinica l exam and blood work recommended. 2. Large peripherally calcified 6 cm cyst again noted in the superior aspect of the left kidney. Sma ller 2 cortical cysts in the opposite-right kidney. Calculus in left kidney immediately subjacent to the cystic described above. No hydronephrosis on either side. No calculi in the urinary bladder. 3. Sigmoid diverticulosis. No obvious acute diverticulitis. 4. Gallbladder is again noted be surgically absent. CBD is not dilated. RADIATION DOSE DELIVERED: 1,087.8mGy.cm Total DLP DATA REPOSITORY: All CT scans at this facility are submitted to the National Radiology Data Registry (NRDR) Dose Index Registry (DIR) with the [employer] (ACR). RADIATION OPTIMIZATION: All CT scans at this facility use at least one of these dose optimization te chniques: automated exposure control; mA and/or kV adjustment per patient size (includes targeted exa ms where dose is matched to clinical indication); or iterative reconstruction.
--- NOTE | 2021-09-27 14:05 | W.ED.GENAD ---
Discharge Plan Disposition Patient Disposition: HOME Condition: Stable Discharge Details Clinical Impression: Abdominal pain Primary Care Provider: Nisha Samano ED Provider: Shayne Rodriguez Home Meds and New Rx's Prescriptions: Continued simvastatin 20 mg tablet 20 mg PO QHS 0RF losartan 50 mg tablet 50 mg PO HS 0RF chlorthalidone 25 mg tablet 25 mg PO HS 0RF Caltrate 600-D Plus Minerals 600 mg calcium- 800 unit-50 mg tablet 1 tab PO DAILY 0RF cannabidiol 100 mg/mL solution 16 mg PO DAILY AM 0RF Label Comments: pt. reports she takes a dropperful in the morning acetaminophen [Tylenol] 325 mg Capsule 650 mg PO QID 0RF Stool Softener 50 mg Capsule 50 mg PO DAILY 0RF Discharge Instructions Instructions: Abdominal Pain (ED), Seroma (DC) Additional Instructions: Please follow-up with Dr. Wu this week. Please return to the emergency department for any worsening symptomatology Medical Decision Making 71-year-old female recent umbilical hernia repair mesh placement at the end of August, presents with recurrent right lower quadrant abdominal discomfort and flank discomfort associated with mild nausea subjective chills over the past several days, recent visit with imaging showing likely seroma at surgical site, has had follow-up with her general surgeon, patient is afebrile nontoxic nonperitoneal, no palpable masses, no overlying skin changes, well-healed umbilical scar, no CVA tenderness, does have trace blood on initial UA without RBCs on microscopic analysis, consider persistent seroma versus postsurgical pain versus less likely developing intraperitoneal or abdominal abscess versus less likely appendicitis versus kidney stone versus unlikely UTI or pyelonephritis versus less likely malignancy. Given age recent surgery and subjective worsening symptoms will repeat imaging and labs, patient does not want any analgesia or fluids at this time. We will check a CPK given trace blood on UA without microscopic RBCs consider mild rhabdo postsurgical. If negative imaging and labs will discharge home and encourage follow-up with primary surgeon 16: 54 patient resting comfortably no acute distress. Nonperitoneal. No white count afebrile. CT abdomen pelvis showing unchanged seroma. Counseled patient at length regarding findings. Patient actually followed up with her primary surgeon Dr. Wu this past Monday and had normal examination. I reached out to Dr. Wu and she agrees that there is no acute process at this time however she is more than happy to see the patient in the office this week. Patient will follow up with Dr. Wu. Given strict return precautions for worsening symptomatology. Lab Data Lab results narrative: Laboratory Tests Range/Units 09/27/21 09/27/21 09/27/21 13:30 14:05 14:05 WBC (4.4-10.8) 10^3/uL 5.64 RBC (3.93-5.22) 10^6/uL 4.38 Hgb (11.2-15.7) g/dL 13.8 Hct (36.0-46.0) % 40.6 MCV (80-95) fL 92.7 MCH (27.0-33.0) pg 31.5 MCHC (32.0-36.0) % 34.0 RDW (11.7-14.6) % 12.0 Plt Count (130-400) 10^3/uL 268 MPV (8.0-11.0) fL 9.9 Immature Gran % 0.2 Neutrophils % 57.8 Lymphocytes % 29.6 Monocytes % 9.8 Eosinophils % 1.4 Basophils % 1.2 Nucleated RBC % % 0 Absolute Neutrophils (1.2-6.7) 10^3/uL 3.26 Absolute Lymphocytes (1.2-3.4) 10^3/uL 1.67 Absolute Monocytes (0.1-0.8) 10^3/uL 0.55 Absolute Eosinophils (0.0-0.7) 10^3/uL 0.08 Absolute Basophils (0.0-0.2) 10^3/uL 0.07 Sodium (136-145) mmol/L 139 Potassium (3.5-5.1) mmol/L 3.3 L Chloride (98-107) mmol/L 103 Carbon Dioxide (21.0-32.0) mmol/L 28.1 Anion Gap (3-11) mmol/L 7.9 BUN (7-18) mg/dL 18 Creatinine (0.55-1.02) mg/dL 0.7 Estimated GFR/1.73 m2 (mL/min/1.73m2) >= 60.00 Glucose (74-106) mg/dL 126 H Calcium (8.5-10.1) mg/dL 9.4 Total Bilirubin (0.2-1.0) mg/dL 0.5 AST (15-37) U/L 21 ALT (14-59) U/L 17 Alkaline Phosphatase (46-116) U/L 77 Creatine Kinase (26-192) U/L Total Protein (6.4-8.2) g/dL 7.8 Albumin (3.4-5.0) g/dL 3.9 Urine Color (Yellow) Yellow Urine Clarity (Clear) Clear Urine pH (5-8) 7.0 Ur Specific [place] (1.005-1.025) 1.025 Urine Protein (Negative) mg/dL Negative Urine Ketones (Negative) mg/dL Negative Urine Blood (Negative) Trace-intact H Urine Nitrite (Negative) Negative Urine Bilirubin (Negative) Negative Urine Urobilinogen (Up TO 0.2) EU/dL 0.2 Ur Leukocyte Esterase (Negative) Negative Urine RBC (0-2) HPF 0-2 Urine WBC (0-5) HPF 3-5 Ur Epithelial Cells (Negative) HPF Moderate Urine Crystals (Negative) HPF Negative Urine Bacteria (Negative) HPF Negative Urine Casts (Negative) LPF Negative Urine Mucus (Negative) Negative Ur Culture Indicated? No/Sq. Contamination Urine Glucose (Negative) mg/dL Negative Range/Units 09/27/21 14:05 WBC (4.4-10.8) 10^3/uL RBC (3.93-5.22) 10^6/uL Hgb (11.2-15.7) g/dL Hct (36.0-46.0) % MCV (80-95) fL MCH (27.0-33.0) pg MCHC (32.0-36.0) % RDW (11.7-14.6) % Plt Count (130-400) 10^3/uL MPV (8.0-11.0) fL Immature Gran % Neutrophils % Lymphocytes % Monocytes % Eosinophils % Basophils % Nucleated RBC % % Absolute Neutrophils (1.2-6.7) 10^3/uL Absolute Lymphocytes (1.2-3.4) 10^3/uL Absolute Monocytes (0.1-0.8) 10^3/uL Absolute Eosinophils (0.0-0.7) 10^3/uL Absolute Basophils (0.0-0.2) 10^3/uL Sodium (136-145) mmol/L Potassium (3.5-5.1) mmol/L Chloride (98-107) mmol/L Carbon Dioxide (21.0-32.0) mmol/L Anion Gap (3-11) mmol/L BUN (7-18) mg/dL Creatinine (0.55-1.02) mg/dL Estimated GFR/1.73 m2 (mL/min/1.73m2) Glucose (74-106) mg/dL Calcium (8.5-10.1) mg/dL Total Bilirubin (0.2-1.0) mg/dL AST (15-37) U/L ALT (14-59) U/L Alkaline Phosphatase (46-116) U/L Creatine Kinase (26-192) U/L 58 Total Protein (6.4-8.2) g/dL Albumin (3.4-5.0) g/dL Urine Color (Yellow) Urine Clarity (Clear) Urine pH (5-8) Ur Specific [place] (1.005-1.025) Urine Protein (Negative) mg/dL Urine Ketones (Negative) mg/dL Urine Blood (Negative) Urine Nitrite (Negative) Urine Bilirubin (Negative) Urine Urobilinogen (Up TO 0.2) EU/dL Ur Leukocyte Esterase (Negative) Urine RBC (0-2) HPF Urine WBC (0-5) HPF Ur Epithelial Cells (Negative) HPF Urine Crystals (Negative) HPF Urine Bacteria (Negative) HPF Urine Casts (Negative) LPF Urine Mucus (Negative) Ur Culture Indicated? Urine Glucose (Negative) mg/dL HPI General Date/Time Provider Initiated Documentation: 09/27/21 13:32. HPI Narrative: 71-year-old female history of umbilical hernia repair mesh placement in August presents with recurrent right lower quadrant abdominal pain right flank discomfort over the past week worsening in nature associated with chills subjective at home, denies urinary frequency or dysuria, slight nausea without vomiting, did have some loose stool. Denies rash or skin changes. Patient is frustrated endorse that she thinks this is her appendix and is worried that she may need surgery Related Data Home Medications Medication Instructions Recorded Confirmed losartan 50 mg tablet 50 mg PO HS 12/12/18 09/27/21 simvastatin 20 mg tablet 20 mg PO QHS 12/12/18 09/27/21 calcium 600 mg-D3 800 unit-mag11 1 tab PO DAILY 06/29/21 09/27/21 50 [id number]-otoniel-s.borat tablet (Caltrate 600-D Plus Minerals) chlorthalidone 25 mg tablet 25 mg PO HS tab 06/29/21 09/27/21 acetaminophen 325 mg capsule 650 mg PO QID 08/25/21 09/27/21 (Tylenol) docusate sodium 50 mg capsule 50 mg PO DAILY 08/25/21 09/27/21 (Stool Softener) cannabidiol 100 mg/mL oral solution 16 mg PO DAILY AM ml 09/22/21 09/27/21 Allergies Allergy/AdvReac Type Severity Reaction Status Date / Time lisinopril AdvReac Unknown Verified 09/27/21 13:37 General Stated Complaint: Abd Prob FERNANDO: 3 Review of Systems Narrative: Review of Systems Constitutional: negative Eyes: negative ENT: negative Cardiovascular: negative Respiratory: negative Gastrointestinal: Abdominal pain, flank pain, nausea : negative Musculoskeletal: negative Skin: negative Neurologic: negative Psych: negative PFSH All Active Problems (Updated 09/27/21 @ 16:56 by Shayne Rodriguez MD) Abdominal pain (Acute) Seroma after procedure (Acute) Flank pain (Acute) Urinary frequency (Acute) Medical History Depression Dyslipidemia HTN (hypertension) Hypokalemia Intermittent palpitations Left ventricular hypertrophy Pt. states she is unaware of this. 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 reports ovaries removed also Social History Smoking/Tobacco Use Status: Never Smoking risk assessment performed?: Yes Alcohol Intake: never Drug use: Never Substance use type: does not use Details: CBD drops daily Do you feel safe at home: Yes Do you feel safe in your relationship?: Yes Exam Narrative Exam Narrative: Physical Examination General: alert, awake, cooperative, resting comfortably, no acute distress HEENT: normocephalic, atraumatic; PERRL, EOM intact, conjunctiva normal; no nasal discharge; moist mucous membranes, oral and pharyngeal mucosa normal, tolerating secretions Neck: supple, trachea midline; full ROM Chest: normal to inspection Respiratory: normal respiratory effort, speaking in full sentences, clear to auscultation, no wheezing, rales or rhonchi Cardiac: regular rate, regular rhythm, S1S2 intact, no murmurs rubs or gallops GI: abdomen soft, non-tender, non-distended; no palpable mass or hepatosplenomegaly; well-healed umbilical hernia repair scar at umbilicus, no palpable mass, no overlying skin changes, nonperitoneal Back: No CVA tenderness Skin: no lesions, rashes or trauma appreciated Neuro: AAOx3, normal speech, moving all extremities Psych: Appropriate mood and affect Course Vital Signs Vital signs: Vital Signs Temperature 36.5 C 09/27/21 13:33 Pulse 91 H 09/27/21 13:33 Respiratory Rate 16 09/27/21 13:33 Blood Pressure 163/104 H 09/27/21 13:33 Pulse Oximetry 96 09/27/21 13:33 Temperature 36.5 C 09/27/21 13:33 Temperature Source Skin 09/27/21 13:33 Pulse 91 H 09/27/21 13:33 Respiratory Rate 16 09/27/21 13:33 Respiratory Effort 09/27/21 13:33 Blood Pressure 163/104 H 09/27/21 13:33 Blood Pressure Position Sitting 09/27/21 13:33 Pulse Oximetry 96 09/27/21 13:33 Oxygen Delivery Method Room Air 09/27/21 13:33 Oxygen Flow Rate 0 09/27/21 13:33 Pain Level 8 09/27/21 13:33 Lab/Test Results Lab/Test Results: Laboratory Tests Range/Units 09/27/21 13:30 Urine Color (Yellow) Yellow Urine Clarity (Clear) Clear Urine pH (5-8) 7.0 Ur Specific [place] (1.005-1.025) 1.025 Urine Protein (Negative) mg/dL Negative Urine Ketones (Negative) mg/dL Negative Urine Blood (Negative) Trace-intact H Urine Nitrite (Negative) Negative Urine Bilirubin (Negative) Negative Urine Urobilinogen (Up TO 0.2) EU/dL 0.2 Ur Leukocyte Esterase (Negative) Negative Urine RBC (0-2) HPF 0-2 Urine WBC (0-5) HPF 3-5 Ur Epithelial Cells (Negative) HPF Moderate Urine Crystals (Negative) HPF Negative Urine Bacteria (Negative) HPF Negative Urine Casts (Negative) LPF Negative Urine Mucus (Negative) Negative Ur Culture Indicated? No/Sq. Contamination Urine Glucose (Negative) mg/dL Negative
[2021-09-27 14:18] LABS: Abs Immature Grans 0.01 10^3/uL (0.0-0.06); Absolute Basophil Count 0.07 10^3/uL (0.0-0.2); Absolute Eosinophil Count 0.08 10^3/uL (0.0-0.7); Absolute Lymphocyte Count 1.67 10^3/uL (1.2-3.4); Absolute Monocyte Count 0.55 10^3/uL (0.1-0.8); Absolute Neutrophil Count 3.26 10^3/uL (1.2-6.7); Basophils % 1.2; Eosinophils % 1.4; HCT 40.6 % (36.0-46.0); HGB 13.8 g/dL (11.2-15.7); Immature Grans % 0.2; Lymphocytes % 29.6; MCH 31.5 pg (27.0-33.0); MCV 92.7 fL (80-95); MPV 9.9 fL (8.0-11.0); Monocytes % 9.8; Neutrophils % 57.8; Nucleated RBC 0 %; Platelet Count 268 10^3/uL (130-400); RBC 4.38 10^6/uL (3.93-5.22); RDW-SD 41.3 fL; WBC 5.64 10^3/uL (4.4-10.8)
[2021-09-27 14:31] LABS: ALT 17 U/L (14-59); AST 21 U/L (15-37); Albumin 3.9 g/dL (3.4-5.0); Alkaline Phosphatase 77 U/L (46-116); Anion Gap 7.9 mmol/L (3-11); BUN 18 mg/dL (7-18); Bilirubin, Total 0.5 mg/dL (0.2-1.0); CO2 28.1 mmol/L (21.0-32.0); CREATININE 0.7 mg/dL (0.55-1.02); Calcium 9.4 mg/dL (8.5-10.1); Chloride 103 mmol/L (98-107); Glucose 126 mg/dL (74-106); Potassium 3.3 mmol/L (3.5-5.1); Sodium 139 mmol/L (136-145); Total Protein 7.8 g/dL (6.4-8.2)
[2021-09-27 14:32] LABS: Creatine Kinase 58 U/L (26-192)
[2021-09-27 17:05] VITALS: BP 123/87; PULSE 79; RESP 14; TEMP 36; O2SAT 95
== END 2021-09-27 17:18 | disposition home or self-care (01) ==
PROVIDERS: Emergency Provider Emergency Medicine; PCP Nurse Practitioner Family
DX: R10.31 Right lower quadrant pain (principal); R11.0 Nausea
CPT/HCPCS: 36415; 80053; 82550; 99285; 74177; 81003; 81015; 85025; 99284

== ENCOUNTER 2021-11-04 16:29 | Outpatient (REF) | payer MEDICARE, SELFPAY ==
[2021-11-04 17:58] LABS: Abs Immature Grans 0.01 10^3/uL (0.0-0.06); Absolute Basophil Count 0.05 10^3/uL (0.0-0.2); Absolute Eosinophil Count 0.05 10^3/uL (0.0-0.7); Absolute Lymphocyte Count 1.82 10^3/uL (1.2-3.4); Absolute Monocyte Count 0.58 10^3/uL (0.1-0.8); Absolute Neutrophil Count 3.59 10^3/uL (1.2-6.7); Basophils % 0.8; Eosinophils % 0.8; HCT 42.5 % (36.0-46.0); HGB 14.2 g/dL (11.2-15.7); Immature Grans % 0.2; Lymphocytes % 29.8; MCH 31.4 pg (27.0-33.0); MCHC 33.4 % (32.0-36.0); MPV 10.3 fL (8.0-11.0); Monocytes % 9.5; Neutrophils % 58.9; Nucleated RBC 0 %; Platelet Count 284 10^3/uL (130-400); RBC 4.52 10^6/uL (3.93-5.22); RDW 12.1 % (11.7-14.6); RDW-SD 42.2 fL
[2021-11-04 18:02] LABS: ALT 62 U/L (14-59); AST 41 U/L (15-37); Albumin 4.3 g/dL (3.4-5.0); Alkaline Phosphatase 88 U/L (46-116); Anion Gap 7.7 mmol/L (3-11); BUN 25 mg/dL (7-18); Bilirubin, Total 0.6 mg/dL (0.2-1.0); CO2 29.3 mmol/L (21.0-32.0); CREATININE 0.8 mg/dL (0.55-1.02); Calcium 9.3 mg/dL (8.5-10.1); Chloride 101 mmol/L (98-107); Glucose 99 mg/dL (74-106); Potassium 3.5 mmol/L (3.5-5.1); Sodium 138 mmol/L (136-145)
[2021-11-04 18:08] LABS: Bilirubin Negative (Negative); Blood Negative (Negative); Clarity Clear (Clear); Glucose Negative (Negative); Ketones Negative (Negative); Leukocyte Esterase Negative (Negative); Nitrite Negative (Negative); Specific Gravity >= 1.030 (1.005-1.025); Urobilinogen 0.2 EU/dL (Up TO 0.2)
== END 2021-11-04 16:30 | disposition home or self-care (01) ==
LOC: LBN 16:29
PROVIDERS: PCP Nurse Practitioner Family; Visit Provider Nurse Practitioner Family
DX: R39.9 Unspecified symptoms and signs involving the genitourinary system (principal); R10.9 Unspecified abdominal pain
CPT/HCPCS: 80053; 81003; 85025

== ENCOUNTER 2022-09-21 13:29 | Emergency (ER) | payer MEDICARE, SELFPAY ==
--- NOTE | 2022-09-21 13:30 | RT.EKG_ITS ---
APPROVED REPORT Exam: Resting ECG Reason for Exam: dizzy Patient Location: E HR:95 bpm ECG Measurements Heart Rate 95 AXIS WI 223 P 45 QRSd 106 QRS 45 QT 346 T 62 QTc 437 Conclusion Sinus rhythm...normal P axis, V-rate 60- 99 Prolonged WI interval...WI >215, V-rate 91-120 Probable left atrial enlargement...P >50mS, <-0.10mV V1
[2022-09-21 13:36] VITALS: BP 151/72; PULSE 96; RESP 16; TEMP 37.1; O2SAT 98
[2022-09-21 13:49] LABS: Bilirubin Negative (Negative); Blood Trace-intact (Negative); Clarity Sl Cloudy (Clear); Glucose Negative (Negative); Ketones Negative (Negative); Leukocyte Esterase Negative (Negative); Nitrite Negative (Negative); Specific Gravity 1.025 (1.005-1.025); Urobilinogen 0.2 EU/dL (Up TO 0.2)
[2022-09-21 13:57] LABS: Bacteria Few HPF (Negative); C & S Indicated? No; Casts 3-5 Hyaline LPF (Negative); Crystals Negative HPF (Negative); Epithelial Cells Moderate HPF (Negative); Mucus Moderate (Negative); WBC 0-2 HPF (0-5)
[2022-09-21 14:32] LABS: Abs Immature Grans 0.02 10^3/uL (0.0-0.06); Absolute Basophil Count 0.04 10^3/uL (0.0-0.2); Absolute Eosinophil Count 0.02 10^3/uL (0.0-0.7); Absolute Lymphocyte Count 1.75 10^3/uL (1.2-3.4); Absolute Monocyte Count 0.67 10^3/uL (0.1-0.8); Absolute Neutrophil Count 4.74 10^3/uL (1.2-6.7); Basophils % 0.6; Eosinophils % 0.3; HCT 40.9 % (36.0-46.0); HGB 14.3 g/dL (11.2-15.7); Immature Grans % 0.3; Lymphocytes % 24.2; MCH 31.8 pg (27.0-33.0); MCV 91 fL (80-95); MPV 10.8 fL (8.0-11.0); Monocytes % 9.3; Neutrophils % 65.3; Platelet Count 266 10^3/uL (130-400); RDW 11.9 % (11.7-14.6); RDW-SD 39.4 fL; WBC 7.24 10^3/uL (4.4-10.8)
[2022-09-21] MEDS: Ondansetron 4 MG/2 ML VIAL IVP (14:35)
[2022-09-21] MEDS: Lactated Ringers 1,000 ML 1000 ML IV (14:35)
[2022-09-21] MEDS: fentaNYL 100 MCG/2 ML VIAL 50 MCG IVP (14:35)
[2022-09-21 14:38] VITALS: BP 137/75; PULSE 76; RESP 16; O2SAT 95
[2022-09-21 14:51] LABS: ALT 22 U/L (14-59); AST 24 U/L (15-37); Albumin 4.1 g/dL (3.4-5.0); Alkaline Phosphatase 92 U/L (46-116); Anion Gap 8.9 mmol/L (3-11); BUN 15 mg/dL (7-18); Bilirubin, Total 0.8 mg/dL (0.2-1.0); CO2 30.1 mmol/L (21.0-32.0); CREATININE 0.7 mg/dL (0.55-1.02); Calcium 9.9 mg/dL (8.5-10.1); Chloride 101 mmol/L (98-107); Estimated GFR 91.26 (mL/min/1.73m2); Glucose 155 mg/dL (74-106); Lipase 29 U/L (16-77); Sodium 140 mmol/L (136-145); Total Protein 7.8 g/dL (6.4-8.2); Troponin I < 50 ng/L (<or=60)
[2022-09-21 14:53] LABS: Potassium 2.9 mmol/L (3.5-5.1)
--- NOTE | 2022-09-21 15:20 | DI.CT_ITS ---
Exam(s) CT ABDOMEN PELVIS W EXAM: CT ABDOMEN PELVIS W CLINICAL HISTORY: RLQ pain, diarrhea TECHNIQUE: Imaging Protocol: Axial computed tomography images with coronal and sagittal reformatted images were created and reviewed CONTRAST MATERIAL: Intravenous: Omnipaque 350 Contrast volume:100 mL Oral: No COMPARISON: CT CT ABDOMEN PELVIS W from 09/27/2021 FINDINGS: ABDOMEN: Lung Bases: Normal where visualized. Liver: Normal density. No measurable mass. Portal, Superior Mesenteric, and Splenic Veins: Unremarkable. Gallbladder and Biliary Tract: Status post cholecystectomy. No significant biliary ductal dilatation . Pancreas: Normal density, no abnormal calcifications or inflammatory process. Spleen: Normal. Adrenals: No masses seen. Kidneys: Normal size, contour and axis. There is a 6 mm nonobstructing stone in the upper pole of the left kidney. Stable bilateral renal cysts. This includes a 6 cm cyst in the superior pole of the l eft kidney which shows peripheral thin wall calcification. Abdominal Aorta: Abdominal portion non-dilated. Atherosclerosis. Bowel: There is diverticulosis of the colon but no evidence of acute diverticulitis. No evidence of appendicitis. There is no evidence of bowel obstruction. No significant bowel wall thickening is se en. Peritoneal Cavity: No ascites, collection or mesenteric inflammatory response. No free air. Lymph Nodes: Within normal limits. Bones: Within normal limits for the patient's age. Soft Tissues: The fluid collection seen in the anterior abdominal wall have resolved. PELVIS: Bladder: Symmetric distention, no gross wall thickening. Reproductive Organs: Unremarkable as visualized. Lymph Nodes: Within normal limits. Bones: Within normal limits for the patient's age. IMPRESSION: 1. No acute abdominal or pelvic process. 2. Findings were discussed with the Mesha Grayson at 3:48 p.m. on 09/21/2022. RADIATION DOSE DELIVERED: 1,179.76mGy.cm Total DLP DATA REPOSITORY: All CT scans at this facility are submitted to the National Radiology Data Registry (NRDR) Dose Index Registry (DIR) with the [employer] ([employer]). RADIATION OPTIMIZATION: All CT scans at this facility use at least one of these dose optimization te chniques: automated exposure control; mA and/or kV adjustment per patient size (includes targeted exa ms where dose is matched to clinical indication); or iterative reconstruction.
[2022-09-21] MEDS: Omnipaque 350 MG/ML 100 ML BTL IJ (15:22)
[2022-09-21] MEDS: Normal Saline - Diluent 50 ML VIAL IV (15:22)
[2022-09-21] MEDS: Normal Saline Flush 10 ML SYR IVP (15:23)
--- NOTE | 2022-09-21 15:33 | ED.GENADUL_ITS ---
Discharge Plan Disposition Patient Disposition: Home Condition: Stable Discharge Details Clinical Impression: Diarrhea, Abdominal pain, Nausea, Acute hypokalemia Primary Care Provider: Nihsa Samano ED Provider: Mesha Grayson Home Meds and New Rx's Prescriptions: New potassium chloride 20 mEq tablet extended release 20 meq PO DAILY Qty: 8 0RF ondansetron 4 mg tablet,disintegrating 4 mg PO DAILY 4 Days Qty: 4 0RF oxycodone 5 mg capsule 5 mg PO Q8H PRNQty: 7 0RF Continued simvastatin 20 mg tablet 20 mg PO QHS losartan 50 mg tablet 50 mg PO HS chlorthalidone 25 mg tablet 25 mg PO HS Caltrate 600-D Plus Minerals 600 mg calcium- 800 unit-50 mg tablet 1 tab PO DAILY cannabidiol 100 mg/mL solution 16 mg PO DAILY AM Patient Comments: pt. reports she takes a dropperful in the morning acetaminophen [Tylenol] 325 mg Capsule 650 mg PO QID PRN Stool Softener 50 mg Capsule 50 mg PO DAILY Discharge Instructions Instructions: Hypokalemia (ED), Acute Nausea and Vomiting (ED), Acute Diarrhea (ED), Abdominal Pain (ED) Additional Instructions: Please follow-up with your primary care physician in 24 to 48 hours for reassessment, your potassium is low, recommendation is that you take potassium daily for the next several days Take Zofran as needed for nausea and vomiting, I have given you several tablets of oxycodone, this medication is addictive and can cause constipation so use caution while taking it, do not drive for 8 hours after taking this medication You may take 2.5 to 5 mg as needed Should he have new or worsening complaints, please return immediately for reassessment including weakness, dizziness, fever, chills Referrals: Nisha Samano [Primary Care Provider] - 1 day Discharge Data Discharge Date/Time-TO BE ENTERED AT DEPARTURE: 09/21/22 16:15 Medical Decision Making This 72-year-old female presents with nausea, vomiting, abdominal pain and di arrhea CT abdomen and pelvis does not show evidence of acute pathology per radiology interpretation and my review Diagnostic labs are reassuring including no leukocytosis Hypokalemia noted, potassium 2.9, able to tolerate p.o., given p.o. potassium prior to discharge home, 40 mEq and discharged home on p.o. potassium Urinalysis did not show evidence of acute abnormality Patient feeling symptomatically improved, able to tolerate p.o. Stable for discharge home at this time, given antiemetics Discharged home in stable condition with stable vitals Recheck in 24 to 48 hours recommended Medical Records Medical records reviewed: Yes I reviewed the patient's medical records. Lab Data Lab results reviewed: Yes I reviewed the patient's lab results. HPI General Date/Time Provider Initiated Documentation: 09/21/22 13:32 . HPI Narrative: This 72-year-old female presents with report of nausea, diarrhea, abdominal pain. She states the pain is in her right lower quadrant. She denies any fever or chills. She denies any known sick contacts. She denies any urinary complaints. Denies any falls or injuries. Denies any recent antibiotics. Patient generally denies any known exacerbating or alleviating factors. She denies any blood in her stool. She denies any known spoiled food exposure or exotic travel. Related Data Home Medications Medication Instructions Recorded Confirmed losartan 50 mg tablet 50 mg PO HS 12/12/18 09/21/22 simvastatin 20 mg tablet 20 mg PO QHS 12/12/18 09/21/22 calcium 600 mg-D3 800 unit-mag11 1 tab PO DAILY 06/29/21 09/21/22 50 ev-emqs-fobcrl-otoniel-s.borat tablet (Caltrate 600-D Plus Minerals) chlorthalidone 25 mg tablet 25 mg PO HS 06/29/21 09/21/22 acetaminophen 325 mg capsule 650 mg PO QID PRN 08/25/21 09/21/22 (Tylenol) docusate sodium 50 mg capsule 50 mg PO DAILY 08/25/21 09/21/22 (Stool Softener) cannabidiol 100 mg/mL oral solution 16 mg PO DAILY AM 09/22/21 09/21/22 ondansetron 4 mg disintegrating 4 mg PO DAILY 4 days #4 tabs 09/21/22 tablet oxycodone 5 mg capsule 5 mg PO Q8H PRN #7 caps 09/21/22 potassium chloride 20 mEq 20 meq PO DAILY #8 tabs 09/21/22 tablet,extended release Previous Rx's Medication Instructions Recorded ondansetron 4 mg disintegrating 4 mg PO DAILY 4 days #4 tabs 09/21/22 tablet oxycodone 5 mg capsule 5 mg PO Q8H PRN #7 caps 09/21/22 potassium chloride 20 mEq 20 meq PO DAILY #8 tabs 09/21/22 tablet,extended release Allergies Allergy/AdvReac Type Severity Reaction Status Date / Time lisinopril AdvReac Unknown Verified 11/04/21 14:14 General Stated Complaint: Abd Prob FERNANDO: 3 PFSH All Active Problems (Updated 09/21/22 @ 16:00 by GENE Ma) Diarrhea (Acute) Abdominal pain (Acute) Nausea (Acute) Acute hypokalemia (Acute) Medical History Depression Dyslipidemia HTN (hypertension) Hypokalemia Intermittent palpitations Left ventricular hypertrophy Pt. states she is unaware of this. 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 reports ovaries removed also Social History Smoking/Tobacco Use Status: Never Smoking risk assessment performed?: Yes Alcohol Intake: never Drug use: Never Substance use type: does not use Details: CBD drops daily Do you feel safe at home: Yes Do you feel safe in your relationship?: Yes Exam Const General: cooperative, comfortable and no acute distress Orientation: alert and oriented x3 HENMT Other: moist mucous membranes Eyes Sclera: sclerae normal Pupils: PERRL Resp Effort & Inspection: normal respiratory effort Auscultation: clear to auscultation bilaterally Cardio Rate: regular rate Rhythm: regular rhythm GI Inspection: normal to inspection Other: RLq tenderness, no rebound or guarding Skin General skin exam: no rashes or lesions noted Neuro General: patient alert and patient oriented x3 Course Vital Signs Vital signs: Vital Signs Temperature 37.1 C 09/21/22 13:36 Pulse 96 H 09/21/22 13:36 Respiratory Rate 16 09/21/22 13:36 Blood Pressure 151/72 H 09/21/22 13:36 Pulse Oximetry 98 09/21/22 13:36 Temperature 37.1 C 09/21/22 13:36 Temperature Source Oral 09/21/22 13:36 Pulse 76 09/21/22 14:38 Respiratory Rate 16 09/21/22 14:38 Respiratory Effort 09/21/22 13:42 Blood Pressure 137/75 09/21/22 14:38 Blood Pressure Position Supine 09/21/22 13:36 Pulse Oximetry 95 09/21/22 14:38 Oxygen Delivery Method Room Air 09/21/22 14:38 Oxygen Flow Rate 0 09/21/22 14:38 Pain Level 8 09/21/22 14:35 Lab/Test Results Lab/Test Results: Laboratory Tests Range/Units 09/21/22 09/21/22 09/21/22 13:32 13:50 13:50 WBC (4.4-10.8) 10^3/uL 7.24 RBC (3.93-5.22) 10^6/uL 4.50 Hgb (11.2-15.7) g/dL 14.3 Hct (36.0-46.0) % 40.9 MCV (80-95) fL 91 MCH (27.0-33.0) pg 31.8 MCHC (32.0-36.0) % 35.0 RDW (11.7-14.6) % 11.9 Plt Count (130-400) 10^3/uL 266 MPV (8.0-11.0) fL 10.8 Immature Gran % 0.3 Neutrophils % 65.3 Lymphocytes % 24.2 Monocytes % 9.3 Eosinophils % 0.3 Basophils % 0.6 Nucleated RBC % (0.0-0.3) % 0.0 Absolute Neutrophils (1.2-6.7) 10^3/uL 4.74 Absolute Lymphocytes (1.2-3.4) 10^3/uL 1.75 Absolute Monocytes (0.1-0.8) 10^3/uL 0.67 Absolute Eosinophils (0.0-0.7) 10^3/uL 0.02 Absolute Basophils (0.0-0.2) 10^3/uL 0.04 Sodium (136-145) mmol/L 140 Potassium (3.5-5.1) mmol/L 2.9 L Chloride (98-107) mmol/L 101 Carbon Dioxide (21.0-32.0) mmol/L 30.1 Anion Gap (3-11) mmol/L 8.9 BUN (7-18) mg/dL 15 Creatinine (0.55-1.02) mg/dL 0.7 Est GFR (CKD-EPI 2020) (mL/min/1.73m2) 91.26 Glucose (74-106) mg/dL 155 H Calcium (8.5-10.1) mg/dL 9.9 Total Bilirubin (0.2-1.0) mg/dL 0.8 AST (15-37) U/L 24 ALT (14-59) U/L 22 Alkaline Phosphatase (46-116) U/L 92 Troponin I (<or=60) ng/L < 50 Total Protein (6.4-8.2) g/dL 7.8 Albumin (3.4-5.0) g/dL 4.1 Lipase (16-77) U/L 29 Urine Color (Yellow) Yellow Urine Clarity (Clear) Sl Cloudy Urine pH (5-8) 6.0 Ur Specific [place] (1.005-1.025) 1.025 Urine Protein (Negative) mg/dL Trace H Urine Ketones (Negative) mg/dL Negative Urine Blood (Negative) Trace-intact H Urine Nitrite (Negative) Negative Urine Bilirubin (Negative) Negative Urine Urobilinogen (Up TO 0.2) EU/dL 0.2 Ur Leukocyte Esterase (Negative) Negative Urine RBC (0-2) HPF 3-5 H Urine WBC (0-5) HPF 0-2 Ur Epithelial Cells (Negative) HPF Moderate Urine Crystals (Negative) HPF Negative Urine Bacteria (Negative) HPF Few Urine Casts (Negative) LPF 3-5 Hyaline Urine Mucus (Negative) Moderate Ur Culture Indicated? No Urine Glucose (Negative) mg/dL Negative
[2022-09-21] MEDS: Potassium Chloride 20 MEQ TABCR 40 MEQ PO (15:56)
[2022-09-21 15:57] VITALS: BP 148/74; PULSE 79; RESP 16; O2SAT 94
--- NOTE | 2022-09-26 08:56 | NUR.NOTE ---
Nursing Note: Accessed chart to determine orders for EKG and to determine whether or not one needs to be cancelled.
== END 2022-09-21 16:15 | disposition home or self-care (01) ==
PROVIDERS: Emergency Medicine; Emergency Provider Physician Assistant; PCP Nurse Practitioner Family
DX: R19.7 Diarrhea, unspecified (principal); R11.2 Nausea with vomiting, unspecified; R10.31 Right lower quadrant pain; I10 Essential (primary) hypertension; E87.6 Hypokalemia
CPT/HCPCS: 36415; 80053; 83690; 87493; 87505; 93005; 96361; 96374; 96375; 99285; 74177; 81003; 81015; 84484; 85025; 93010; 99284; J2405; J3010; J3490

== ENCOUNTER 2022-12-02 15:29 | Outpatient (REF) | payer MEDICARE, SELFPAY ==
[2022-12-02 15:09] LABS: ALT 24 U/L (14-59); AST 24 U/L (15-37); Alkaline Phosphatase 74 U/L (46-116); Anion Gap 6.6 mmol/L (3-11); BUN 15 mg/dL (7-18); Bilirubin, Total 0.6 mg/dL (0.2-1.0); CO2 30.4 mmol/L (21.0-32.0); CREATININE 0.8 mg/dL (0.55-1.02); Calcium 9.7 mg/dL (8.5-10.1); Chloride 102 mmol/L (98-107); Estimated GFR 77.75 (mL/min/1.73m2); Glucose 125 mg/dL (74-106); Potassium 3.9 mmol/L (3.5-5.1); Sodium 139 mmol/L (136-145); Total Protein 7.6 g/dL (6.4-8.2)
== END 2022-12-02 15:30 | disposition home or self-care (01) ==
LOC: NCHCN 15:29
PROVIDERS: PCP Nurse Practitioner Family; Visit Provider Nurse Practitioner Family
DX: I10 Essential (primary) hypertension (principal); R79.89 Other specified abnormal findings of blood chemistry; E87.6 Hypokalemia; E78.5 Hyperlipidemia, unspecified; E66.9 Obesity, unspecified
CPT/HCPCS: 80053

== ENCOUNTER 2023-01-25 17:44 | Outpatient (REF) | payer MEDICARE, SELFPAY | END 2023-01-25 17:45 | disposition home or self-care (01) | LOC: LBN 17:44 | PROVIDERS: PCP Nurse Practitioner Family; Visit Provider Nurse Practitioner Family | DX: N39.0 Urinary tract infection, site not specified (principal) | CPT/HCPCS: 87077; 87086; 87186 ==

== ENCOUNTER 2023-07-31 21:22 | Outpatient (REF) | payer MEDICARE, SELFPAY ==
[2023-07-31 22:26] LABS: Bilirubin Negative (Negative); Blood Trace-intact (Negative); Clarity Clear (Clear); Glucose 100 mg/dL (Negative); Ketones Negative (Negative); Leukocyte Esterase Negative (Negative); Nitrite Positive (Negative)
[2023-07-31 22:43] LABS: Bacteria Rare HPF (Negative); C & S Indicated? Yes; Casts Negative LPF (Negative); Crystals Negative HPF (Negative); Epithelial Cells Rare HPF (Negative); Mucus Negative (Negative); RBC 0-2 HPF (0-2); WBC 0-2 HPF (0-5)
== END 2023-07-31 21:23 | disposition home or self-care (01) ==
LOC: NCHCN 21:22
PROVIDERS: PCP Nurse Practitioner Family; Visit Provider Physician Assistant
DX: R30.0 Dysuria (principal)
CPT/HCPCS: 81003; 81015; 87086

== ENCOUNTER 2023-08-02 14:18 | Outpatient (REF) | payer MEDICARE, SELFPAY | END 2023-08-02 14:19 | disposition home or self-care (01) | LOC: LBN 14:18 | PROVIDERS: PCP Nurse Practitioner Family; Visit Provider Physician Assistant | DX: N39.0 Urinary tract infection, site not specified (principal) | CPT/HCPCS: 87086 ==

== ENCOUNTER 2023-12-27 13:27 | Outpatient (REF) | payer MEDICARE, SELFPAY ==
[2023-12-27 14:56] LABS: ALT 23 U/L (14-59); AST 18 U/L (15-37); Albumin 4.1 g/dL (3.4-5.0); Alkaline Phosphatase 78 U/L (46-116); Anion Gap 10.5 mmol/L (3-11); BUN 18 mg/dL (7-18); Bilirubin, Total 0.6 mg/dL (0.2-1.0); CO2 29.5 mmol/L (21.0-32.0); CREATININE 0.7 mg/dL (0.55-1.02); Calcium 9.4 mg/dL (8.5-10.1); Calculated LDL 78 mg/dL (<100); Chloride 104 mmol/L (98-107); Cholesterol 171 mg/dL (<200); Glucose 125 mg/dL (74-106); HDL Cholesterol 81 mg/dL (40-60); Potassium 3.4 mmol/L (3.5-5.1); Sodium 144 mmol/L (136-145); Total Protein 7.2 g/dL (6.4-8.2); Triglyceride 63 mg/dL (<150)
[2023-12-27 15:18] LABS: Hemoglobin A1C 5.8 % (<5.7)
== END 2023-12-27 13:28 | disposition home or self-care (01) ==
LOC: NCHCN 13:27
PROVIDERS: PCP Nurse Practitioner Family; Visit Provider Nurse Practitioner Family
DX: E78.5 Hyperlipidemia, unspecified (principal); E66.9 Obesity, unspecified
CPT/HCPCS: 80053; 80061; 83036

== ENCOUNTER → 2024-01-10 04:27 | Outpatient (CLI) | payer MEDICARE, SELFPAY ==
--- NOTE | 2024-01-10 14:46 | DI.MAMMO_ITS ---
Exam(s) MAMMO SCREENING EXAM: MAMMO SCREENING CLINICAL HISTORY: SCREENING, Z12.39 TECHNIQUE: Mammograms were interpreted according to the usual protocol including computer analysis w [email or web address] CAD system, tomosynthesis and C-view imaging. COMPARISON: 2016 through 2020 FINDINGS: The breasts are composed of mainly fatty density , Breast Density category A. No suspicious masses or suspicious microcalcifications are seen. No skin thickening or abnormal axillary lymph nodes are seen. There has been no significant change from prior exams. IMPRESSION: BI-RADS Category 1, Negative mammogram Yearly screening mammography is recommended. Breast Density - Category A, fatty density. A negative radiographic report should not delay biopsy if a dominant or clinically suspicious mass is present. Up to ten percent of cancers are not identified on mammography. A negative report may reinforce clinical impression. Adenosis and dense breasts may obscure an underlying neoplasm. False positive reports average 6 to 10%. Patient will receive a letter notifying them of these results.
== END ==
PROVIDERS: PCP Nurse Practitioner Family; Visit Provider Nurse Practitioner Family
DX: Z12.31 Encounter for screening mammogram for malignant neoplasm of breast (principal); R92.323 Mammographic fibroglandular density, bilateral breasts
CPT/HCPCS: 77063; 77067

== ENCOUNTER 2024-08-17 09:08 | Emergency (ER) | payer MEDICARE, SELFPAY ==
[2024-08-17 09:12] VITALS: BP 198/88; PULSE 74; RESP 16; TEMP 36.6; O2SAT 97
--- NOTE | 2024-08-17 09:15 | DI.CT_ITS ---
Exam(s) CT ABDOMEN PELVIS W EXAM: CT ABDOMEN PELVIS W CLINICAL HISTORY: RLQ pain, eval for appe. TECHNIQUE: Imaging Protocol: Axial computed tomography images with coronal and sagittal reformatted images were created and reviewed CONTRAST MATERIAL: Intravenous: Omnipaque-350 100cc Oral: None COMPARISON: CT CT ABDOMEN PELVIS W from 09/21/2022 FINDINGS: VISUALIZED LUNG BASES: No nodules nor pleural effusions evident. ABDOMEN: There is no ascites. LIVER: There are no focal hepatic lesions evident. No dilated intrahepatic ducts. GALLBLADDER/BILIARY: The gallbladder is surgically absent. CBD is not dilated. PANCREAS: No evidence of pancreatic mass nor dilatation of the pancreatic duct. SPLEEN: Spleen is not enlarged. No obvious intrasplenic lesions. Splenic and portal veins are paten t. KIDNEYS: Again noted is a large peripherally calcified partially septated cyst in the superior pole o f the left kidney which measures 5.7 x 5 0.1 by a 6 cm, unchanged. It exhibits some mild peripheral calcification. There is also a 4-5 millimeter cyst adjacent calculus in left kidney unchanged in siz e and position from the prior CT study. Otherwise there are smaller cortical cysts in the opposite-r ight kidney measuring up to 1.8 cm size and not requiring further investigation. There are no solid renal masses. No hydronephrosis nor significant hydroureter. There is subtle thickening of the infe rior aspect of the urinary bladder wall. ADRENALS:No significant finding. ABDOMINAL AORTA: Abdominal aorta is not enlarged. LYMPH NODES:There is no retroperitoneal nor paraaortic adenopathy. ABDOMINAL WALL: Small fat only containing umbilical hernia. GI: There is no evidence of bowel obstruction, free air, nor abscess. PELVIS: GI: Appendix is not seen and may be surgically absent. No evidence of appendicitis.There is divertic ulosis of the descending-left colon as well as the sigmoid but without evidence of obvious acute dive rticulitis. LYMPH NODES: There is no intrapelvic nor inguinal adenopathy. REPRODUCTIVE: Retroverted uterus.. No abnormal adnexal masses nor free fluid in the pelvis. URINARY BLADDER: Subtle thickening of the inferior wall the bladder. OSSEOUS: Multilevel chronic degenerative disc disease in the mid-lower lumbar spine. No listhesis. No ominous osseous lesions. IMPRESSION: 1. Findings as above but no obvious acute findings in the abdomen and pelvis 2. There appears to be slight thickening the inferior wall of the urinary bladder, best seen on the a xial images; possibly significant. 3. 4. RADIATION DOSE DELIVERED: 715.24mGy.cm Total DLP DATA REPOSITORY: All CT scans at this facility are submitted to the National Radiology Data Registry (NRDR) Dose Index Registry (DIR) with the [employer] (A[employer]). RADIATION OPTIMIZATION: All CT scans at this facility use at least one of these dose optimization te chniques: automated exposure control; mA and/or kV adjustment per patient size (includes targeted exa ms where dose is matched to clinical indication); or iterative reconstruction.
[2024-08-17 09:23] VITALS: BP 198/88; PULSE 74; RESP 16; TEMP 36.6; O2SAT 97
--- NOTE | 2024-08-17 09:24 | W.ED.GENAD ---
Discharge Plan Disposition Patient Disposition: Home Condition: Good Discharge Details Chief Complaint: Abd Prob Clinical Impression: Right sided abdominal pain Primary Care Provider: Nisha Samano ED Provider: Mikhail Mazariegos Home Meds and New Rx's Prescriptions: No Action simvastatin 20 mg tablet 20 mg PO QHS losartan 50 mg tablet 50 mg PO HS chlorthalidone 25 mg tablet 25 mg PO HS Caltrate 600-D Plus Minerals 600 mg calcium- 800 unit-50 mg tablet 1 tab PO DAILY cannabidiol 100 mg/mL solution 16 mg PO DAILY AM Patient Comments: pt. reports she takes a dropperful in the morning acetaminophen [Tylenol] 325 mg Capsule 650 mg PO QID PRN Stool Softener 50 mg Capsule 50 mg PO DAILY potassium chloride 20 mEq tablet extended release 20 meq PO DAILY Qty: 8 0RF vitamin E 268 mg (400 unit) capsule 268 mg PO DAILY Discharge Instructions Instructions: Abdominal pain Additional Instructions: At this time the CAT scan shows no evidence of appendicitis or other significant abnormality. Your laboratory workup is returned very reassuring. There is no evidence of infection in your urine. As your pain has resolved, I suspect that the source of the pain may have been a potential mild adhesion to your old mesh from your previous hernia surgery, potential hard stool, or a virus or spasm muscle. Please take Tylenol as needed for pain. If you notice any worsening of your symptoms, or any new symptoms such as vomiting, diarrhea, fever, chills, shortness of breath, chest pain, numbness, weakness, or fainting , please return immediately to the emergency department for reevaluation. Please follow up with your primary care provider as soon as possible for reassessment and reevaluation. As always, it was a pleasure participating in your medical care today. Referrals: Nisha Samano [Primary Care Provider] - [facility] General Date/Time Provider Initiated Documentation: 08/17/24 09:08. HPI Narrative: 74-year-old female with a past medical history of right ovarian cancer with subsequent bilateral oophorectomy, hypertension, borderline diabetes, high cholesterol, umbilical hernia repair with mesh, cholecystectomy, who presents today for abdominal pain. Patient states that this morning she developed sharp right lower quadrant abdominal pain that is constant in nature. She had an episode of diarrhea but no vomiting. No blood in her stool. No urinary pain. Pain is made worse when she bends, or applies pressure on her abdomen. She denies fever or chills. She denies chest pain shortness of breath. No other complaints. Related Data Home Medications ?Medication ?Instructions ?Recorded ?Confirmed losartan 50 mg tablet 50 mg PO HS 12/12/18 08/17/24 simvastatin 20 mg tablet 20 mg PO QHS 12/12/18 08/17/24 calcium 600 mg-D3 800 unit-mag11 1 tab PO DAILY 06/29/21 08/17/24 50 eb-bntq-iigjkg-otoniel-s.borat tablet (Caltrate 600-D Plus Minerals) chlorthalidone 25 mg tablet 25 mg PO HS 06/29/21 08/17/24 acetaminophen 325 mg capsule 650 mg PO QID PRN 08/25/21 08/17/24 (Tylenol) docusate sodium 50 mg capsule 50 mg PO DAILY 08/25/21 08/17/24 (Stool Softener) cannabidiol 100 mg/mL oral solution 16 mg PO DAILY AM 09/22/21 08/17/24 potassium chloride 20 mEq 20 meq PO DAILY #8 tabs 09/21/22 08/17/24 tablet,extended release vitamin E 268 mg (400 unit) capsule 268 mg PO DAILY 08/17/24 08/17/24 Previous Rx's ?Medication ?Instructions ?Recorded potassium chloride 20 mEq 20 meq PO DAILY #8 tabs 09/21/22 tablet,extended release Allergies Allergy/AdvReac Type Severity Reaction Status Date / Time lisinopril AdvReac Unknown Other (See Verified 08/17/24 09:16 Comment) General Stated Complaint: Abd Prob FERNANDO: 3 Exam Narrative Exam Narrative: 1.Const: Well-nourished, Well-developed, appearing stated age 2.Eyes: PERRL, no conjunctival injection, and symmetrical lids. 3.ENT: Atraumatic external nose and ears. Moist MM. Neck: Symmetric, trachea midline, No thyromegaly. 4.CVS: +S1/S2, Peripheral pulses 2+ and equal in all extremities. Brisk capillary refill in all extremities. 5.RESP: Unlabored respiratory effort. Clear to auscultation bilaterally. No wheezes rales or rhonchi 6.GI: Soft, nondistended, mild to moderate tenderness in the right lower quadrant. Positive Rovsing sign. Negative Gonzales sign. Positive pain at McBurney's point. No flank or CVA tenderness. 7.MSK: Normocephalic/Atraumatic, Extremities w/o deformity or ttp No cyanosis or clubbing, Normal movement of all extremities 8.Skin: Warm, Dry. No rashes or lesions. 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 Sensation grossly intact, no focal neurologic deficits. 10.Psych: (AAO) x3. Appropriate mood and affect Course Vital Signs Vital signs: Vital Signs Temperature 36.6 C 08/17/24 09:12 Pulse 74 08/17/24 09:12 Respiratory Rate 16 08/17/24 09:12 Blood Pressure 198/88 H 08/17/24 09:12 Pulse Oximetry 97 08/17/24 09:12 Temperature 36.6 C 08/17/24 09:23 Temperature Source Oral 08/17/24 09:23 Pulse 74 08/17/24 09:23 Respiratory Rate 16 08/17/24 09:23 Blood Pressure 198/88 H 08/17/24 09:23 Blood Pressure Position Sitting 08/17/24 09:23 Pulse Oximetry 97 08/17/24 09:23 Oxygen Delivery Method Room Air 08/17/24 09:23 Oxygen Flow Rate 0 08/17/24 09:23 Pain Level 7 08/17/24 09:23 Medical Decision Making 74-year-old female with a past medical history of right ovarian cancer with subsequent bilateral oophorectomy, hypertension, borderline diabetes, high cholesterol, umbilical hernia repair with mesh, cholecystectomy, who presents today for abdominal pain. Patient states that this morning she developed sharp right lower quadrant abdominal pain that is constant in nature. She had an episode of diarrhea but no vomiting. No blood in her stool. No urinary pain. Pain is made worse when she bends, or applies pressure on her abdomen. She denies fever or chills. She denies chest pain shortness of breath. No other complaints. Exam demonstrates well-appearing female, positive right lower quadrant tenderness, positive Rovsing sign. Negative heel strike test, but positive obturator and psoas sign. Concern for acute appendicitis. Symptoms appear less consistent with mesenteric ischemia. No pulsatile mass to suggest AAA, differential also includes urolithiasis, UTI. Will treat the patient's pain, get a CT scan to rule out acute process, monitor closely and reassess 12:09 PM Laboratory workup is returned normal, urinalysis normal. No suggestion of pyelonephritis, significant white count or bandemia. Renal function normal. CT scan demonstrates no acute process. Patient refused morphine. She did get Tylenol. On reassessment pain is completely resolved. Palpation of the right lower quadrant shows no tenderness, no guarding or rebound. No signs of an acute surgical abdomen. Patient feels well. I did give the option for prolonged observation here in the ER to see if the pain returned. Patient has declined and is requesting to go home at this time. Patient will be discharged home. Discussed red flags for which to return. Suspect potential source may have been adhesion to previous mesh, hard stool, or spasm. I have extensively reviewed the treatment plan and discharge instructions with the patient. I have addressed all patient concerns at this time. The patient was made aware of what symptoms to monitor for that would warrant a return to the emergency department. Discussed the plan with the patient, they demonstrate verbal understanding and agreement with our assessment and plan at this time. The documentation in this chart was dictated using TE2 dictation software. Please excuse any dictation errors. FINDINGS: Lungs: Bibasilar atelectasis Liver: Normal. No mass. Gallbladder and biliary ducts: Cholecystectomy Pancreas: Pancreatic atrophy Spleen: Normal. No splenomegaly. Adrenal glands: Normal. No mass. Kidneys and ureters: Multiple simple cysts in both kidneys. Largest measures 5 cm in the left kidney. Subcentimeter low attenuation area in the right kidney is too small for characterization. Stomach and bowel: Diverticulosis of the rectosigmoid. No eagle diverticulitis . No obstruction Appendix: No evidence of appendicitis. Intraperitoneal space: Unremarkable. No free air. No significant fluid collection. Vasculature: Unremarkable. No abdominal aortic aneurysm. Lymph nodes: Unremarkable. No enlarged lymph nodes. Urinary bladder: Unremarkable as visualized. Reproductive: Unremarkable as visualized. Bones/joints: Unremarkable. No acute fracture. Soft tissues: Umbilical hernia contains fat IMPRESSION: No acute process Thank you for allowing us to participate in the care of your patient. 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 states she is unaware of this. Dyslipidemia Umbilical hernia s/p repair Surgical History History of umbilical hernia repair (~08/25/21) Hx of cholecystectomy H/O tubal ligation Status post surgical removal of both fallopian tubes pt. reports ovaries removed also Social History Smoking/Tobacco Use Status: Never Smoking risk assessment performed?: Yes Alcohol Intake: never Drug use: Never Substance use type: does not use Details: CBD drops daily Do you feel safe at home: Yes Do you feel safe in your relationship?: Yes
[2024-08-17 09:45] LABS: Lactate 0.8 mmol/L (0.6-1.4)
[2024-08-17 09:48] LABS: Abs Immature Grans 0.02 10^3/uL (0.0-0.06); Absolute Basophil Count 0.05 10^3/uL (0.0-0.2); Absolute Eosinophil Count 0.07 10^3/uL (0.0-0.7); Absolute Monocyte Count 0.58 10^3/uL (0.1-0.8); Absolute Neutrophil Count 5.27 10^3/uL (1.2-6.7); Basophils % 0.7 %; HCT 42.3 % (36.0-46.0); HGB 14.6 g/dL (11.2-15.7); Immature Grans % 0.3 %; Lymphocytes % 14.3 %; MCH 31.9 pg (27.0-33.0); MCHC 34.5 % (32.0-36.0); MCV 92 fL (80-95); MPV 9.9 fL (8.0-11.0); Monocytes % 8.3 %; Neutrophils % 75.4 %; Platelet Count 262 10^3/uL (130-400); RBC 4.58 10^6/uL (3.93-5.22); RDW-SD 40.5 fL; WBC 6.99 10^3/uL (4.4-10.8)
[2024-08-17 09:52] LABS: Bilirubin Negative (Negative); Blood Negative (Negative); Clarity Clear (Clear); Glucose Negative (Negative); Ketones Negative (Negative); Leukocyte Esterase Negative (Negative); Nitrite Negative (Negative); Urobilinogen 0.2 mg/dL (Up to 0.2); pH 6.5 (5-8)
[2024-08-17 10:03] LABS: ALT 30 U/L (14-59); AST 25 U/L (15-37); Albumin 3.9 g/dL (3.4-5.0); Alkaline Phosphatase 92 U/L (46-116); Anion Gap 6.3 mmol/L (3-11); BUN 12 mg/dL (7-18); Bilirubin, Total 0.68 mg/dL (0.2-1.0); CO2 30.7 mmol/L (21.0-32.0); CREATININE 0.7 mg/dL (0.55-1.02); Chloride 104 mmol/L (98-107); Estimated GFR 90.14 (mL/min/1.73m2); Glucose 129 mg/dL (74-106); Lipase 27 U/L (<78); Potassium 3.4 mmol/L (3.5-5.1); Sodium 141 mmol/L (136-145); Total Protein 7.6 g/dL (6.4-8.2)
[2024-08-17] MEDS: ACETAMINOPHEN 1,000 MG/100 ML BAG 400 MG IVPB (10:03)
[2024-08-17 10:09] LABS: Calcium 9.7 mg/dL (8.5-10.1)
[2024-08-17] MEDS: Normal Saline - Diluent 50 ML VIAL IJ (10:19)
[2024-08-17] MEDS: Omnipaque 350 MG/ML 100 ML BTL IJ (10:19)
--- NOTE | 2024-08-17 11:40 | DI.VRAD_ITS ---
PROCEDURE INFORMATION: Exam: CT Abdomen And Pelvis With Contrast Exam date and time: 08/17/2024 10:24 AM Age: 74 years old Clinical indication: Other: Rlq pain, eval for appe; Prior surgery; Surgery date: 6+ months; Surgery type: Hernia repair. Cholecystectomy TECHNIQUE: Imaging protocol: Computed tomography of the abdomen and pelvis with contrast. Contrast material: OMNIPAQUE 350; Contrast volume: 75 ml; Contrast route: INTRAVENOUS (IV); COMPARISON: CT ABDOMEN PELVIS W 09/21/2022 3:13 PM FINDINGS: Lungs: Bibasilar atelectasis Liver: Normal. No mass. Gallbladder and biliary ducts: Cholecystectomy Pancreas: Pancreatic atrophy Spleen: Normal. No splenomegaly. Adrenal glands: Normal. No mass. Kidneys and ureters: Multiple simple cysts in both kidneys. Largest measures 5 cm in the left kidney. Subcentimeter low attenuation area in the right kidney is too small for characterization. Stomach and bowel: Diverticulosis of the rectosigmoid. No eagle diverticulitis . No obstruction Appendix: No evidence of appendicitis. Intraperitoneal space: Unremarkable. No free air. No significant fluid collection. Vasculature: Unremarkable. No abdominal aortic aneurysm. Lymph nodes: Unremarkable. No enlarged lymph nodes. Urinary bladder: Unremarkable as visualized. Reproductive: Unremarkable as visualized. Bones/joints: Unremarkable. No acute fracture. Soft tissues: Umbilical hernia contains fat IMPRESSION: No acute process Dictated and Authenticated by: Darrian Marie MD. Ordering:RIVERA Elizondo MD
[2024-08-17 12:16] VITALS: BP 127/85; PULSE 63; RESP 16; O2SAT 96
== END 2024-08-17 14:55 | disposition home or self-care (01) ==
PROVIDERS: Emergency Provider Student in an Organized Health Care Education/Training Program; PCP Nurse Practitioner Family
DX: R10.11 Right upper quadrant pain (principal); R19.7 Diarrhea, unspecified
CPT/HCPCS: 80053; 83690; 99285; 74177; 81003; 83605; 85025; 99284; J0131; J3490

== ENCOUNTER 2024-12-03 15:37 | Outpatient (REF) | payer MEDICARE, SELFPAY ==
[2024-12-03 15:49] LABS: COMMENT (LAB VIEW ONLY) 82.66 mg/dL; Microalb ug/mg Crea 9.7 ug/mg Cr
== END 2024-12-03 15:38 | disposition home or self-care (01) ==
LOC: NCHCN 15:37
PROVIDERS: PCP Nurse Practitioner Family; Visit Provider Nurse Practitioner Family
DX: I10 Essential (primary) hypertension (principal)
CPT/HCPCS: 82043; 82570

== ENCOUNTER 2024-12-12 02:49 | Outpatient (CLI) | payer MEDICARE, SELFPAY ==
--- NOTE | 2024-12-12 | DI.DEXA_ITS ---
Exam(s) XR DEXA BONE DENSITY W/WO ANUPAM EXAM: XR DEXA BONE DENSITY W/WO ANUPAM CLINICAL HISTORY: OSTEOPENIA AFTER MENOPAUSE,M85.80,SCREENING FOR OSTEOPOROSIS,Z78.0 TECHNIQUE: COMPARISON: CR XR DEXA BONE DENSITY W/WO ANUPAM from 07/02/2021 FINDINGS: Lateral Spine Image: Unremarkable. No compression deformities identified. Left hip: Total T-Score: -1.6. This compares to -1.2 on the prior examination. Total Z-Score: 0.2 T- and Z-scores: Overall, findings are consistent with osteopenia. There is now osteoporosis seen in the femoral neck with a T-score of -2.9. Lumbar Spine: Total T-Score: -1.6. This compares to -0.9 on the prior examination. Total Z-Score: 0.8 T- and Z-scores: Findings are consistent with osteopenia. IMPRESSION: There is now osteoporosis seen in the left femoral neck.
== END 2024-12-12 03:09 ==
LOC: DI 02:50
PROVIDERS: PCP Nurse Practitioner Family; Visit Provider Nurse Practitioner Family
DX: Z78.0 Asymptomatic menopausal state (principal); M81.0 Age-related osteoporosis without current pathological fracture
CPT/HCPCS: 77080

== ENCOUNTER 2025-01-24 13:05 | Emergency (ER) | payer MEDICARE, SELFPAY ==
[2025-01-24] VITALS (21 sets, daily range): BP systolic 104–174; BP diastolic 75–93; PULSE 64–79; RESP 20; TEMP 36.4; O2SAT 93–98
--- NOTE | 2025-01-24 13:34 | W.ED.GENAD ---
Discharge Plan Disposition Patient Disposition: Home Condition: Improving Discharge Details Clinical Impression: Abdominal pain Primary Care Provider: Nisha Samano ED Provider: Dieudonne Corcoran Home Meds and New Rx's Prescriptions: Continued simvastatin 20 mg tablet 20 mg PO QHS losartan 50 mg tablet 50 mg PO HS chlorthalidone 25 mg tablet 25 mg PO HS Caltrate 600-D Plus Minerals 600 mg calcium- 800 unit-50 mg tablet 1 tab PO DAILY cannabidiol 100 mg/mL solution 16 mg PO DAILY AM Patient Comments: pt. reports she takes a dropperful in the morning acetaminophen [Tylenol] 325 mg Capsule 650 mg PO QID PRN Stool Softener 50 mg Capsule 50 mg PO DAILY potassium chloride 20 mEq tablet extended release 20 meq PO DAILY Qty: 8 0RF vitamin E 268 mg (400 unit) capsule 268 mg PO DAILY Discharge Instructions Instructions: Abdominal Pain, Adult ED Additional Instructions: Your laboratory values and CT imaging are very reassuring. No evidence of acute appendicitis or other emergent process. Urine culture is pending, if positive you will be contacted and treated with the appropriate antibiotics. Otherwise as this has reoccurred now at least 6 times, I do recommend that you follow-up as an outpatient with your primary care provider discuss your ongoing symptoms, multiple presentations to the ER, and likely need for outpatient evaluation. Surgical referral may be indicated. Please watch for new or worsening symptoms and return immediately to the ER. Discharge Data Discharge Date/Time-TO BE ENTERED AT DEPARTURE: 01/24/25 15:58 HPI General Mode of arrival: ambulatory. Date/Time Provider Initiated Documentation: 01/24/25 13:33. Limitations to Documentation: no limitations. Information obtained by: patient. History of Present Illness 74 year old F presents to the emergency department with the chief complaint of abd pain, described as moderate, with intensity rated at 6. Quality is described as aching, and is localized to the abdomen. Patient reports no radiation. Patient started experiencing this day(s) (3) and it has been constant. No relieving factors improve symptom(s), No exacerbating factors reported . Patient notes nausea/vomiting (Nausea, no vomiting) and other (Diarrhea). Patient did receive the following treatments prior to arrival, none Related Data Home Medications ?Medication ?Instructions ?Recorded ?Confirmed losartan 50 mg tablet 50 mg PO HS 12/12/18 01/24/25 simvastatin 20 mg tablet 20 mg PO QHS 12/12/18 01/24/25 calcium 600 mg-D3 800 unit-mag11 1 tab PO DAILY 06/29/21 01/24/25 50 zr-apav-djjkht-otoniel-s.borat tablet (Caltrate 600-D Plus Minerals) chlorthalidone 25 mg tablet 25 mg PO HS 06/29/21 01/24/25 acetaminophen 325 mg capsule 650 mg PO QID PRN 08/25/21 01/24/25 (Tylenol) docusate sodium 50 mg capsule 50 mg PO DAILY 08/25/21 01/24/25 (Stool Softener) cannabidiol 100 mg/mL oral solution 16 mg PO DAILY AM 09/22/21 01/24/25 potassium chloride 20 mEq 20 meq PO DAILY #8 tabs 09/21/22 01/24/25 tablet,extended release vitamin E 268 mg (400 unit) capsule 268 mg PO DAILY 08/17/24 01/24/25 Previous Rx's ?Medication ?Instructions ?Recorded potassium chloride 20 mEq 20 meq PO DAILY #8 tabs 09/21/22 tablet,extended release Allergies Allergy/AdvReac Type Severity Reaction Status Date / Time lisinopril AdvReac Unknown Other (See Verified 01/24/25 13:31 Comment) General Stated Complaint: Abd Prob FERNANDO: 3 Review of Systems Constitutional Constitutional: Denies fever(s) and Denies weakness Cardiovascular Cardiovascular: Denies chest pain Respiratory Respiratory: Denies cough Gastrointestinal Gastrointestinal: Reports abdominal pain, Denies hematochezia, Denies constipation, Reports diarrhea, Reports nausea and Denies vomiting Genitourinary Genitourinary: Denies dysuria Musculoskeletal Musculoskeletal: Denies back pain Integumentary/Breasts Skin/Breast: Denies rash Neurologic Neurologic: Denies weakness Hematologic/Lymphatic Hematologic/Lymphatic: Denies easy bleeding and Denies easy bruising Exam Const General: cooperative, healthy appearing, comfortable and no acute distress Orientation: alert, awake and oriented x3 HENMT Head: normal to inspection, normocephalic and atraumatic Mouth: oral mucosae normal and moist mucous membranes Eyes General: appearance normal, both eyes and all related structures Conjunctivae: conjunctivae normal Neck Neck: normal visual inspection, full ROM, trachea midline and supple Resp Effort & Inspection: normal respiratory effort and able to speak in complete sentences Auscultation: clear to auscultation bilaterally Cardio Rate: regular rate Rhythm: regular rhythm GI Inspection: obesity Palpation: soft, not firm, no guarding, not rigid and tender (Diffuse mild lower) Auscultation: normal bowel sounds Back/Spine/Pelvis Back: no CVA tenderness and No back tenderness Skin General skin exam: no rashes or lesions noted Neuro General: patient alert, patient awake, moves all extremities and no focal motor deficits Cognition: normal cognition Speech: speech normal Gait: normal gait Sensory Exam: no sensory deficits noted Extrem General: normal to inspection, full ROM and capillary refill normal Psych Appearance: grossly normal Mental Status: mental status grossly normal Course Vital Signs Vital signs: Vital Signs Temperature 36.4 C L 01/24/25 13:10 Pulse 79 01/24/25 13:10 Respiratory Rate 20 01/24/25 13:10 Blood Pressure 174/83 H 01/24/25 13:10 Pulse Oximetry 97 01/24/25 13:10 Temperature 36.4 C L 01/24/25 13:10 Temperature Source Oral 01/24/25 13:10 Pulse 79 01/24/25 13:10 Respiratory Rate 20 01/24/25 13:10 Blood Pressure 174/83 H 01/24/25 13:10 Blood Pressure Position Sitting 01/24/25 13:10 Pulse Oximetry 97 01/24/25 13:10 Oxygen Delivery Method Room Air 01/24/25 13:10 Oxygen Flow Rate 0 01/24/25 13:10 Pain Level 9 01/24/25 13:10 Medical Decision Making 74-year-old female with a past medical history of 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 No vomiting. Patient states at least 6 previous similar episodes prompting ER visits. This feels exactly the same. Denies bad food exposure or recent exposure to illness. No fever, vomiting, chest pain, shortness of breath, back pain, dysuria or hematuria. No black tarry stools or bright red blood in her diarrhea. Clinically she appears well, nontoxic, hemodynamically stable. Diffuse lower abdominal discomfort, possibly slightly worse in the right lower quadrant. Abdomen does not appear to be surgical at my gross evaluation. Plan to obtain routine laboratory values and CT imaging of the abdomen and pelvis with IV contrast. Will obtain IV access and provide Zofran for nausea and 1 L IV fluid as patient is concerned she may be dehydrated. Clinically she does not appear dehydrated. Patient comfortable to plan. Patient witnessed ambulating steadily to the restroom to provide urine sample Laboratory values grossly unremarkable. Urinalysis with trace leuk esterase, 5-10 white blood cells, and a few bacteria. Culture not indicated. Patient has no urinary symptoms whatsoever. There appears to be uniform thickening of the urinary wall bladder although not significantly changed when compared to previous. We did discuss treating empirically for UTI but patient declines. Instead we will order a culture to determine possible treatment plan for UTI versus contamination versus chronic colonization. CT otherwise shows no acute findings. She does not require any analgesia while under my care in the ER. Upon reevaluation states the pain is minimal and the nausea is gone completely. We did discuss prescription of Zofran but patient declines as she has Zofran at home. Discussed presentation and reassuring workup. Patient is comfortable with disposition to home in her current condition. Given her recurrent episodes, I do recommend outpatient follow-up with her PCP and possible surgical consultation for further evaluation of her recurrent abdominal pain. She was encouraged to watch for new, worsening, or evolving symptoms and return immediately to the ER. She already has a prescription for Zofran and may continue some [id number] medications for symptomatic control. Standard discharge and return precautions were provided. Patient understands, is agreeable to this plan, and has no additional questions or concerns upon discharge. This documentation was generated using [employer] dictation system, please disregard any oddities of phrase or misspellings. Medical Records Medical records reviewed: Yes I reviewed the patient's medical records. Medical records narrative: Abdominal and pelvis CT with contrast read by radiology as 1. Appendix is not seen and may be surgically absent. 2. There is extensive diverticulosis of the sigmoid without evidence of acute diverticulitis. 3. There are multiple tiny hypodensities in the distal small bowel loops and throughout the colon which are probably related to ingested material/medication. 4. There is uniform thickening of the urinary bladder wall noted. May be related to cystitis. Urinalysis recommended. 5. again noted is a benign-appearing peripherally calcified 6 cm cyst in the left kidney. Smaller noncalcified cortical cysts are also noted in the kidneys. No solid renal masses evident. 6. Small fat containing umbilical hernia again noted. Lab Data Lab results reviewed: Yes I reviewed the patient's lab results. Labs: 01/24/25 14:45 Urine - Clean Catch Urine Culture - Pending Laboratory Tests Range/Units 01/24/25 01/24/25 13:32 14:45 WBC (4.4-10.8) 10^3/uL 6.26 RBC (3.93-5.22) 10^6/uL 4.54 Hgb (11.2-15.7) g/dL 14.4 Hct (36.0-46.0) % 41.9 MCV (80-95) fL 92 MCH (27.0-33.0) pg 31.7 MCHC (32.0-36.0) % 34.4 RDW (11.7-14.6) % 12.0 Plt Count (130-400) 10^3/uL 287 MPV (8.0-11.0) fL 10.0 Immature Gran % % 0.3 Neutrophils % % 69.3 Lymphocytes % % 19.5 Monocytes % % 9.3 Eosinophils % % 1.0 Basophils % % 0.6 Nucleated RBC % (0.0-0.3) % 0.0 Absolute Neutrophils (1.2-6.7) 10^3/uL 4.34 Absolute Lymphocytes (1.2-3.4) 10^3/uL 1.22 Absolute Monocytes (0.1-0.8) 10^3/uL 0.58 Absolute Eosinophils (0.0-0.7) 10^3/uL 0.06 Absolute Basophils (0.0-0.2) 10^3/uL 0.04 VBG Lactate (<or=2.0) mmol/L 0.9 Sodium (136-145) mmol/L 139 Potassium (3.5-5.1) mmol/L 3.5 Chloride (98-107) mmol/L 100 Carbon Dioxide (21.0-32.0) mmol/L 28.8 Anion Gap (3-11) mmol/L 10.2 BUN (7-18) mg/dL 18 Creatinine (0.55-1.02) mg/dL 0.7 Est GFR (CKD-EPI 2020) (mL/min/1.73m2) 90.14 Glucose (74-106) mg/dL 119 H Calcium (8.5-10.1) mg/dL 9.7 Total Bilirubin (0.2-1.0) mg/dL 1.0 AST (15-37) U/L 27 ALT (14-59) U/L 33 Alkaline Phosphatase (46-116) U/L 98 Total Protein (6.4-8.2) g/dL 8.2 Albumin (3.4-5.0) g/dL 4.1 Lipase (<78) U/L 28 Urine Color (Yellow) Yellow Urine Clarity (Clear) Clear Urine pH (5-8) 6.0 Ur Specific Mayo (1.005-1.025) 1.020 Urine Protein (Neg-Trace) mg/dL Negative Urine Ketones (Negative) mg/dL 15 H Urine Blood (Negative) Negative Urine Nitrite (Negative) Negative Urine Bilirubin (Negative) Negative Urine Urobilinogen (Up to 0.2) mg/dL 0.2 Ur Leukocyte Esterase (Negative) Trace H Urine RBC (0-2) HPF 0-2 Urine WBC (0-5) HPF 5-10 Ur Epithelial Cells (Negative) HPF Rare Urine Crystals (Negative) HPF Negative Urine Bacteria (Negative) HPF Few Urine Casts (Negative) LPF Negative Urine Mucus (Negative) Negative Ur Culture Indicated? 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 states she is unaware of this. Dyslipidemia Umbilical hernia s/p repair Surgical History History of umbilical hernia repair (~08/25/21) Hx of cholecystectomy H/O tubal ligation Status post surgical removal of both fallopian tubes pt. reports ovaries removed also Social History Smoking/Tobacco Use Status: Never Smoking risk assessment performed?: Yes Alcohol Intake: never Drug use: Never Substance use type: does not use Details: CBD drops daily Do you feel safe at home: Yes Do you feel safe in your relationship?: Yes
[2025-01-24 13:41] LABS: Lactate 0.9 mmol/L (<or=2.0)
[2025-01-24 13:42] LABS: Abs Immature Grans 0.02 10^3/uL (0.0-0.06); Absolute Basophil Count 0.04 10^3/uL (0.0-0.2); Absolute Eosinophil Count 0.06 10^3/uL (0.0-0.7); Absolute Lymphocyte Count 1.22 10^3/uL (1.2-3.4); Absolute Monocyte Count 0.58 10^3/uL (0.1-0.8); Absolute Neutrophil Count 4.34 10^3/uL (1.2-6.7); Basophils % 0.6 %; HCT 41.9 % (36.0-46.0); HGB 14.4 g/dL (11.2-15.7); Immature Grans % 0.3 %; Lymphocytes % 19.5 %; MCH 31.7 pg (27.0-33.0); MCHC 34.4 % (32.0-36.0); MCV 92 fL (80-95); Monocytes % 9.3 %; Neutrophils % 69.3 %; Platelet Count 287 10^3/uL (130-400); RBC 4.54 10^6/uL (3.93-5.22); RDW-SD 41.2 fL; WBC 6.26 10^3/uL (4.4-10.8)
--- NOTE | 2025-01-24 13:45 | DI.CT_ITS ---
Exam(s) CT ABDOMEN PELVIS W EXAM: CT ABDOMEN PELVIS W CLINICAL HISTORY: RLQ pain. TECHNIQUE: Imaging Protocol: Axial computed tomography images with coronal and sagittal reformatted images were created and reviewed CONTRAST MATERIAL: Intravenous: Omnipaque-350 75cc Oral: None COMPARISON: CT CT ABDOMEN PELVIS W from 08/17/2024 FINDINGS: VISUALIZED LUNG BASES: There is some mild infiltrate in the medial aspect of the posterior basal segment of the left lower lobe, unchanged from prior CT scan of 08/17/2024. Some mild benign-appearing increased markings are noted at similar location in the opposite-right lung base. There are no pleural effusions.. ABDOMEN: There is no ascites. LIVER: There are no focal hepatic lesions evident. No dilated intrahepatic ducts. GALLBLADDER/BILIARY: The gallbladder is again noted to be surgically absent. CBD is not dilated. PANCREAS: No evidence of pancreatic mass nor dilatation of the pancreatic duct. SPLEEN: Spleen is not enlarged. No obvious intrasplenic lesions. Splenic and portal veins are patent. ADRENALS: There are no significant adrenal masses. KIDNEYS:Previously described bilateral kidney cysts are again noted. The largest of these is in the superior pole of the left kidney and is again noted be exhibiting some peripheral calcification but no obvious mural nodules nor prominent septae ankle. This measures 6 cm. There are no solid lesions seen in the kidneys. No calculi nor hydronephrosis nor hydroureter.. ABDOMINAL AORTA: Abdominal aorta is not enlarged. LYMPH NODES:There is no retroperitoneal nor paraaortic adenopathy. ABDOMINAL WALL: Fat containing umbilical hernia again noted. There is a small bowel loop approaching the hernia sac. There appears to be probable prior mesh surgery at this level. There is no transition point at this bowel. There is no bowel obstruction. GI: There is no evidence of bowel obstruction, free air, nor abscess. PELVIS: GI: There are multiple similar appearing small densities in the lumen of distal small bowel loops and in the colon. This is probably related to ingested material/medication. This was not evident on the prior CT scan. The appendix is not identified and may be surgically absent. There is extensive di verticulosis in the sigmoid but no evidence of acute diverticulitis. Scattered uncomplicated appearing diverticuli are also noted in the descending-left colon distal to the splenic flexure. There are no diverticuli in the proximal half of the colon. LYMPH NODES: There is no intrapelvic nor inguinal adenopathy. REPRODUCTIVE: Uterus and adnexal regions appear age-appropriate and there is no free fluid in the pelvis. URINARY BLADDER: There is mild uniform thickening of the urinary bladder wall again noted. No prominent perivesicular streaking nor gas in the bladder wall nor within the lumen and there are no calculi in the lumen. There is a mild cystocele evident. OSSEOUS: No fractures and no significant osseous lesions. There is chronic disc space narrowing L4-5 and L5-S1 levels. No listhesis. No pars defects. Some facet arthropathy is noted Sclerotic changes around both sacroiliac joints noted but no ankylosis of the SI joints. IMPRESSION: 1. Appendix is not seen and may be surgically absent. 2. There is extensive diverticulosis of the sigmoid without evidence of acute diverticulitis. 3. There are multiple tiny hypodensities in the distal small bowel loops and throughout the colon which are probably related to ingested material/medication. 4. There is uniform thickening of the urinary bladder wall noted. May be related to cystitis. Urinalysis recommended. 5. again noted is a benign-appearing peripherally calcified 6 cm cyst in the left kidney. Smaller noncalcified cortical cysts are also noted in the kidneys. No solid renal masses evident. 6. Small fat containing umbilical hernia again noted. Findings discussed by phone with ER provider 01/24/2025 at 3:30 p.m. RADIATION DOSE DELIVERED: 837.99mGy.cm Total DLP DATA REPOSITORY: All CT scans at this facility are submitted to the National Radiology Data Registry (NRDR) Dose Index Registry (DIR) with the [employer] (A[employer]). RADIATION OPTIMIZATION: All CT scans at this facility use at least one of these dose optimization techniques: automated exposure control; mA and/or kV adjustment per patient size (includes targeted exams where dose is matched to clinical indication); or iterative reconstruction.
[2025-01-24 13:59] LABS: ALT 33 U/L (14-59); AST 27 U/L (15-37); Albumin 4.1 g/dL (3.4-5.0); Alkaline Phosphatase 98 U/L (46-116); Anion Gap 10.2 mmol/L (3-11); BUN 18 mg/dL (7-18); CO2 28.8 mmol/L (21.0-32.0); CREATININE 0.7 mg/dL (0.55-1.02); Calcium 9.7 mg/dL (8.5-10.1); Chloride 100 mmol/L (98-107); Estimated GFR 90.14 (mL/min/1.73m2); Glucose 119 mg/dL (74-106); Lipase 28 U/L (<78); Potassium 3.5 mmol/L (3.5-5.1); Sodium 139 mmol/L (136-145); Total Protein 8.2 g/dL (6.4-8.2)
[2025-01-24] MEDS: Ondansetron 4 MG/2 ML VIAL IVP (14:06)
[2025-01-24] MEDS: Normal Saline 1,000 ML 1000 ML IV (14:07)
[2025-01-24] MEDS: Normal Saline - Diluent 50 ML VIAL IJ (14:43)
[2025-01-24] MEDS: Omnipaque 350 MG/ML 100 ML BTL 75 ML IJ (14:44)
[2025-01-24 14:54] LABS: Bilirubin Negative (Negative); Blood Negative (Negative); Clarity Clear (Clear); Glucose Negative (Negative); Ketones 15 mg/dL (Negative); Leukocyte Esterase Trace (Negative); Nitrite Negative (Negative); Urobilinogen 0.2 mg/dL (Up to 0.2)
[2025-01-24 15:04] LABS: Bacteria Few HPF (Negative); C & S Indicated? No; Casts Negative LPF (Negative); Crystals Negative HPF (Negative); Epithelial Cells Rare HPF (Negative); Mucus Negative (Negative); RBC 0-2 HPF (0-2)
== END 2025-01-24 15:58 | disposition home or self-care (01) ==
PROVIDERS: Emergency Provider Physician Assistant; PCP Nurse Practitioner Family
DX: R10.32 Left lower quadrant pain (principal); R11.0 Nausea; I10 Essential (primary) hypertension
CPT/HCPCS: 99284; 99285; 96374; 36415; 80053; 83690; 96361; 74177; 81003; 81015; 83605; 85025; 87086; J2405; J3490

== ENCOUNTER 2025-02-20 11:28 | Outpatient (REF) | payer MEDICARE, SELFPAY ==
[2025-02-20 13:25] LABS: Glucose Negative (Negative)
[2025-02-20 13:37] LABS: C & S Indicated? No; RBC 0-2 HPF (0-2); WBC 0-2 HPF (0-5)
== END 2025-02-20 11:29 | disposition home or self-care (01) ==
LOC: LBN 11:28
PROVIDERS: PCP Nurse Practitioner Family; Visit Provider Nurse Practitioner Family
DX: R39.9 Unspecified symptoms and signs involving the genitourinary system (principal)
CPT/HCPCS: 81003; 81015

== ENCOUNTER 2025-03-08 14:07 | Outpatient (REF) | payer MEDICARE, SELFPAY ==
[2025-03-08 16:06] LABS: Glucose Negative (Negative)
[2025-03-08 16:23] LABS: C & S Indicated? Yes; RBC Negative HPF (0-2)
== END 2025-03-08 14:08 | disposition home or self-care (01) ==
LOC: LBN 14:07
PROVIDERS: PCP Nurse Practitioner Family; Visit Provider Physician Assistant
DX: R30.0 Dysuria (principal)
CPT/HCPCS: 81003; 81015; 87086

== ENCOUNTER 2025-03-12 08:49 | Emergency (ER) | payer MEDICARE, SELFPAY ==
[2025-03-12 08:51] VITALS: BP 151/86; PULSE 70; RESP 15; TEMP 36.7; O2SAT 98
[2025-03-12 08:57] VITALS: BP 151/86; PULSE 70; RESP 15; TEMP 36.7; O2SAT 98
--- NOTE | 2025-03-12 09:31 | DI.CT_ITS ---
Exam(s) CT RENAL COLIC WO EXAM: CT RENAL COLIC WO CLINICAL HISTORY: R flank pain, UTI, hx kidney stones. TECHNIQUE: Imaging Protocol: Axial computed tomography images with coronal and sagittal reformatted images were created and reviewed. COMPARISON: CT CT ABDOMEN PELVIS W from 01/24/2025 FINDINGS: Lung Bases: No acute findings. Liver: Normal density. No measurable mass. Gallbladder and biliary tract: Cholecystectomy. No biliary ductal dilation. Pancreas: No abnormal calcifications or inflammatory process. Spleen: Normal size. Kidneys: Normal size, contour and axis.No radiodense stones or obstructive uropathy. Peripherally calcified cysts again noted at the upper pole of the left kidney. 5 millimeter nonobstructing stone upper pole left kidney. No suspicious masses seen. Arm there are 2 tiny stones the upper and lower poles of the right kidney. Small right renal cysts. Adrenal glands: No mass is seen. Lymph nodes: Within normal limits. Vasculature: Abdominal aorta non-dilated. Mild atherosclerotic changes. Bladder:No stones. No gross wall thickening. No evidence of mass. Mild cystocele. Bowel: No obstruction. No bowel wall thickening. Diverticulosis of the descending and sigmoid. No evidence of diverticulitis. High-density material again noted in colon. Peritoneal cavity: No ascites.No free air. No focal collection. No mesenteric inflammatory response. Reproductive organs: Within normal limits. Bones: Unremarkable 8 degenerative changes at L4-5 and L5-S1. Soft Tissues: Within normal limits. IMPRESSION: Small bilateral nonobstructing renal calculi. No evidence of hydronephrosis. Mild cystocele. No bladder wall thickening. RADIATION DOSE DELIVERED: 772.84mGy.cm Total DLP 772.84mGy.cm Total DLP DATA REPOSITORY: All CT scans at this facility are submitted to the National Radiology Data Registry (NRDR) Dose Index Registry (DIR) with the [employer] (ACR). RADIATION OPTIMIZATION: All CT scans at this facility use at least one of these dose optimization techniques: automated exposure control; mA and/or kV adjustment per patient size (includes targeted exams where dose is matched to clinical indication); or iterative reconstruction.
[2025-03-12 09:33] LABS: Abs Immature Grans 0.02 10^3/uL (0.0-0.06); HCT 39.8 % (36.0-46.0); HGB 13.7 g/dL (11.2-15.7); Immature Grans % 0.3 %; MCH 31.4 pg (27.0-33.0); MCHC 34.4 % (32.0-36.0); MCV 91 fL (80-95); MPV 10.0 fL (8.0-11.0); Platelet Count 259 10^3/uL (130-400); RBC 4.37 10^6/uL (3.93-5.22); RDW 11.8 % (11.7-14.6); RDW-SD 39.6 fL; WBC 6.73 10^3/uL (4.4-10.8)
[2025-03-12 09:40] LABS: Glucose Negative (Negative)
[2025-03-12 09:49] LABS: ALT 30 U/L (14-59); AST 23 U/L (15-37); Albumin 3.8 g/dL (3.4-5.0); Alkaline Phosphatase 93 U/L (46-116); Anion Gap 4.4 mmol/L (3-11); BUN 11 mg/dL (7-18); Bilirubin, Total 0.7 mg/dL (0.2-1.0); CO2 33.6 mmol/L (21.0-32.0); Calcium 9.3 mg/dL (8.5-10.1); Chloride 96 mmol/L (98-107); Estimated GFR 90.14 (mL/min/1.73m2); Glucose 115 mg/dL (74-106); Lipase 31 U/L (<78); Potassium 3.3 mmol/L (3.5-5.1); Sodium 134 mmol/L (136-145); Total Protein 7.6 g/dL (6.4-8.2)
[2025-03-12 09:55] LABS: C & S Indicated? No; WBC 0-2 HPF (0-5)
--- NOTE | 2025-03-12 10:25 | W.ED.GENAD ---
Discharge Plan Disposition Patient Disposition: Home Condition: Stable Discharge Details Clinical Impression: Urinary tract infection Primary Care Provider: Nisha Samano ED Provider: Mikhail Barbosa Home Meds and New Rx's Prescriptions: Continued cefpodoxime 200 mg tablet 200 mg PO Q12H 7 Days Qty: 14 0RF Rx Instructions: must administer with a meal/food simvastatin 20 mg tablet 20 mg PO QHS losartan 50 mg tablet 50 mg PO HS chlorthalidone 25 mg tablet 25 mg PO HS Caltrate 600-D Plus Minerals 600 mg calcium- 800 unit-50 mg tablet 1 tab PO DAILY acetaminophen [Tylenol] 325 mg Capsule 650 mg PO QID PRN Discharge Instructions Instructions: Urinary Tract Infection, Adult ED Additional Instructions: You were seen in the emergency department for your flank pain due to ongoing urinary tract infection, your urine shows evidence of clearing of the infection, please continue to take the cefpodoxime, there is no acute obstruction of your urinary tract, you have some tiny kidney stones which are not likely causing your pain, please take Tylenol and ibuprofen as needed for pain, you can help mitigate diarrhea of antibiotic side effects with probiotics and probiotic containing foods like whole yogurts. Please return for any severe increase in flank pain, urinary retention or fever. Referrals: Nisha Samano [Primary Care Provider, Medicine] HPI General Date/Time Provider Initiated Documentation: 03/12/25 09:04. HPI Narrative: 74 year-old female presents to ED today by POV/ambulating with a chief complaint of undergoing treatment for UTI with cefpodoxime, now having some R sided flank pain and pressure with urination, and reported side effects of diarrhea due to antibiotics with onset over the past 4-5 days. Quality described as aching and pressure in R side, and nausea in lower abdomen, no radiation to fever, urinary retention, hematuria, shortness of breath, chest pain. Severity is described as 4/10. Palliating factors include nothing specific. Provoking factors include nothing specific. Events leading up to the incident/Associated Symptoms: Patient endorses history of kidney stones. Patient not anticoagulated. Related Data Home Medications ?Medication ?Instructions ?Recorded ?Confirmed losartan 50 mg tablet 50 mg PO HS 12/12/18 03/12/25 simvastatin 20 mg tablet 20 mg PO QHS 12/12/18 03/12/25 calcium 600 mg-D3 800 unit-mag11 1 tab PO DAILY 06/29/21 03/12/25 50 [id number]-[id number]-otoniel-s.borat tablet (Caltrate 600-D Plus Minerals) chlorthalidone 25 mg tablet 25 mg PO HS 06/29/21 03/12/25 acetaminophen 325 mg capsule 650 mg PO QID PRN 08/25/21 03/12/25 (Tylenol) cefpodoxime 200 mg tablet 200 mg PO Q12H 7 days #14 tabs 03/08/25 03/12/25 Previous Rx's ?Medication ?Instructions ?Recorded cefpodoxime 200 mg tablet 200 mg PO Q12H 7 days #14 tabs 03/08/25 Allergies Allergy/AdvReac Type Severity Reaction Status Date / Time lisinopril AdvReac Unknown Other (See Verified 03/12/25 08:55 Comment) General Stated Complaint: FlankPain FERNANDO: 3 Review of Systems All systems reviewed & are unremarkable except as noted in HPI and below Exam Narrative Exam Narrative: GENERAL APPEARANCE: Well-nourished, non-toxic, awake and alert, atraumatic, no acute distress. SKIN: Warm, pink, dry, intact, without rashes/lesions/ulcerations. HEAD: Normocephalic, atraumatic, normal hair distribution for gender/age. EYES: Normal conjunctiva, no exudates on lids/lashes. ENT: Nares patent, no circumoral cyanosis, no facial swelling NECK: Supple, trachea midline, painless cervical ROM. LUNGS/CHEST: Lungs CTA bilaterally, non-labored respirations, normal A/P diameter, symmetrical expansion, no chest wall deformity HEART (CV/PV): Regular rate and rhythm without murmur, no peripheral edema, no JVD. ABDOMEN: Soft, non-distended, no guarding. MSK: Normal ROM, no swelling/deformity to bilateral UEs or LEs, moving all extremities without weakness, no cyanosis, spine midline without tenderness, normal curvature. NEURO: Mental Status AAOx4 - alert to person, place, time, events No facial droop, no forehead involvement. Motor: No focal weakness - strength 5/5 in bilateral UEs and LEs, proximal and distal, symmetric. Sensory: sensation intact to light touch globally. Gait normal: patient ambulated without ataxia into ED room. PSYCH: euthymic, cooperative, pleasant, appropriate speech Course Vital Signs Vital signs: Vital Signs Temperature 36.7 C 03/12/25 08:51 Pulse 70 03/12/25 08:51 Respiratory Rate 15 03/12/25 08:51 Blood Pressure 151/86 H 03/12/25 08:51 Pulse Oximetry 98 03/12/25 08:51 Temperature 36.7 C 03/12/25 08:57 Temperature Source Oral 03/12/25 08:57 Pulse 70 03/12/25 08:57 Respiratory Rate 15 03/12/25 08:57 Blood Pressure 151/86 H 03/12/25 08:57 Pulse Oximetry 98 03/12/25 08:57 Pain Level 1 03/12/25 08:57 Comment Pt reports it is not pain but she is having flank pressure 03/12/25 08:51 Lab/Test Results Lab/Test Results: Laboratory Tests Range/Units 03/12/25 09:18 WBC (4.4-10.8) 10^3/uL 6.73 RBC (3.93-5.22) 10^6/uL 4.37 Hgb (11.2-15.7) g/dL 13.7 Hct (36.0-46.0) % 39.8 MCV (80-95) fL 91 MCH (27.0-33.0) pg 31.4 MCHC (32.0-36.0) % 34.4 RDW (11.7-14.6) % 11.8 Plt Count (130-400) 10^3/uL 259 MPV (8.0-11.0) fL 10.0 Immature Gran % % 0.3 Neutrophils % % 72.7 Lymphocytes % % 15.9 Monocytes % % 9.7 Eosinophils % % 0.7 Basophils % % 0.7 Nucleated RBC % (0.0-0.3) % 0.0 Absolute Neutrophils (1.2-6.7) 10^3/uL 4.89 Absolute Lymphocytes (1.2-3.4) 10^3/uL 1.07 L Absolute Monocytes (0.1-0.8) 10^3/uL 0.65 Absolute Eosinophils (0.0-0.7) 10^3/uL 0.05 Absolute Basophils (0.0-0.2) 10^3/uL 0.05 Sodium (136-145) mmol/L 134 L Potassium (3.5-5.1) mmol/L 3.3 L Chloride (98-107) mmol/L 96 L Carbon Dioxide (21.0-32.0) mmol/L 33.6 H Anion Gap (3-11) mmol/L 4.4 BUN (7-18) mg/dL 11 Creatinine (0.55-1.02) mg/dL 0.7 Est GFR (CKD-EPI 2020) (mL/min/1.73m2) 90.14 Glucose (74-106) mg/dL 115 H Calcium (8.5-10.1) mg/dL 9.3 Total Bilirubin (0.2-1.0) mg/dL 0.7 AST (15-37) U/L 23 ALT (14-59) U/L 30 Alkaline Phosphatase (46-116) U/L 93 Total Protein (6.4-8.2) g/dL 7.6 Albumin (3.4-5.0) g/dL 3.8 Lipase (<78) U/L 31 Urine Color (Yellow) Yellow Urine Clarity (Clear) Clear Urine pH (5-8) 7.0 Ur Specific [place] (1.005-1.025) 1.015 Urine Protein (Neg-Trace) mg/dL Negative Urine Ketones (Negative) mg/dL Negative Urine Blood (Negative) Trace-intact H Urine Nitrite (Negative) Negative Urine Bilirubin (Negative) Negative Urine Urobilinogen (Up to 0.2) mg/dL 0.2 Ur Leukocyte Esterase (Negative) Negative Urine RBC (0-2) HPF 3-5 H Urine WBC (0-5) HPF 0-2 Ur Epithelial Cells (Negative) HPF Rare Urine Crystals (Negative) HPF Negative Urine Bacteria (Negative) HPF Rare Urine Casts (Negative) LPF Negative Urine Mucus (Negative) Negative Ur Culture Indicated? No Urine Glucose (Negative) mg/dL Negative Medical Decision Making This dictation utilizes [id number] dictation software and may contain unedited grammatical errors. 74 year-old female presents to ED today by POV/ambulating with a chief complaint of undergoing treatment for UTI with cefpodoxime, now having some R sided flank pain and pressure with urination, and reported side effects of diarrhea due to antibiotics with onset over the past 4-5 days. Quality described as aching and pressure in R side, and nausea in lower abdomen, no radiation to fever, urinary retention, hematuria, shortness of breath, chest pain. Severity is described as 4/10. Palliating factors include nothing specific. Provoking factors include nothing specific. Events leading up to the incident/Associated Symptoms: Patient endorses history of kidney stones. Patients' medical history: Hypertension, LVH, dyslipidemia. Family and social history: Noncontributory. Pertinent exam findings / vital signs include no focal abdominal tenderness, no right CVA tenderness to percussion, benign cardiopulmonary exam, afebrile nontoxic vitals. Differential / pathologies of concern include UTI, pyelonephritis, kidney stone. Diagnostic studies of: - CBC, CMP, lipase, UA, CT renal colic without. - CBC shows no actionable abnormality - CMP is unremarkable without any LOYDA - UA shows resolving UTI - Lipase negative - CT renal colic study shows small nonobstructing renal calculi with no hydronephrosis Interventions of: -None- recommend continuing ABX. ED Course/Assessment/Plan: 74-year-old female presents with right flank pain after starting treatment for UTI with cefpodoxime, laboratory workup is benign CT shows no acute abnormality other than chronic nonobstructing renal stones, I counseled her that her infection is likely improving with antibiotics and that no other intervention was necessary at this time, use Tylenol and ibuprofen for pain, stay well-hydrated and take probiotics to help counterbalance the diarrhea of her current antibiotic use, strict return criteria for any acute worsening. Findings not consistent with obstructive uropathy, sepsis, infected kidney stone, hydronephrosis. Disposition of Urinary Tract Infection. Patient verbalized understanding of the plan and return to ED criteria and engaged in shared decision making. Medical Records Medical records reviewed: Yes I reviewed the patient's medical records. Imaging Data Radiologic Study: Attestation: I personally reviewed and interpreted this imaging study as follows: Imaging: CT Scan Radiologist's impression: EXAM: CT RENAL COLIC WO CLINICAL HISTORY: R flank pain, UTI, hx kidney stones. TECHNIQUE: Imaging Protocol: Axial computed tomography images with coronal and sagittal reformatted images were created and reviewed. COMPARISON: CT CT ABDOMEN PELVIS W from 01/24/2025 FINDINGS: Lung Bases: No acute findings. Liver: Normal density. No measurable mass. Gallbladder and biliary tract: Cholecystectomy. No biliary ductal dilation. Pancreas: No abnormal calcifications or inflammatory process. Spleen: Normal size. Kidneys: Normal size, contour and axis.No radiodense stones or obstructive uropathy. Peripherally calcified cysts again noted at the upper pole of the left kidney. 5 millimeter nonobstructing stone upper pole left kidney. No suspicious masses seen. Arm there are 2 tiny stones the upper and lower poles of the right kidney. Small right renal cysts. Adrenal glands: No mass is seen. Lymph nodes: Within normal limits. Vasculature: Abdominal aorta non-dilated. Mild atherosclerotic changes. Bladder:No stones. No gross wall thickening. No evidence of mass. Mild cystocele. Bowel: No obstruction. No bowel wall thickening. Diverticulosis of the descending and sigmoid. No evidence of diverticulitis. High-density material again noted in colon. Peritoneal cavity: No ascites.No free air. No focal collection. No mesenteric inflammatory response. Reproductive organs: Within normal limits. Bones: Unremarkable 8 degenerative changes at L4-5 and L5-S1. Soft Tissues: Within normal limits. IMPRESSION: Small bilateral nonobstructing renal calculi. No evidence of hydronephrosis. Mild cystocele. No bladder wall thickening. Lab Data Lab results reviewed: Yes I reviewed the patient's lab results. Labs: Laboratory Tests Range/Units 03/12/25 09:18 WBC (4.4-10.8) 10^3/uL 6.73 RBC (3.93-5.22) 10^6/uL 4.37 Hgb (11.2-15.7) g/dL 13.7 Hct (36.0-46.0) % 39.8 MCV (80-95) fL 91 MCH (27.0-33.0) pg 31.4 MCHC (32.0-36.0) % 34.4 RDW (11.7-14.6) % 11.8 Plt Count (130-400) 10^3/uL 259 MPV (8.0-11.0) fL 10.0 Immature Gran % % 0.3 Neutrophils % % 72.7 Lymphocytes % % 15.9 Monocytes % % 9.7 Eosinophils % % 0.7 Basophils % % 0.7 Nucleated RBC % (0.0-0.3) % 0.0 Absolute Neutrophils (1.2-6.7) 10^3/uL 4.89 Absolute Lymphocytes (1.2-3.4) 10^3/uL 1.07 L Absolute Monocytes (0.1-0.8) 10^3/uL 0.65 Absolute Eosinophils (0.0-0.7) 10^3/uL 0.05 Absolute Basophils (0.0-0.2) 10^3/uL 0.05 Sodium (136-145) mmol/L 134 L Potassium (3.5-5.1) mmol/L 3.3 L Chloride (98-107) mmol/L 96 L Carbon Dioxide (21.0-32.0) mmol/L 33.6 H Anion Gap (3-11) mmol/L 4.4 BUN (7-18) mg/dL 11 Creatinine (0.55-1.02) mg/dL 0.7 Est GFR (CKD-EPI 2020) (mL/min/1.73m2) 90.14 Glucose (74-106) mg/dL 115 H Calcium (8.5-10.1) mg/dL 9.3 Total Bilirubin (0.2-1.0) mg/dL 0.7 AST (15-37) U/L 23 ALT (14-59) U/L 30 Alkaline Phosphatase (46-116) U/L 93 Total Protein (6.4-8.2) g/dL 7.6 Albumin (3.4-5.0) g/dL 3.8 Lipase (<78) U/L 31 Urine Color (Yellow) Yellow Urine Clarity (Clear) Clear Urine pH (5-8) 7.0 Ur Specific [place] (1.005-1.025) 1.015 Urine Protein (Neg-Trace) mg/dL Negative Urine Ketones (Negative) mg/dL Negative Urine Blood (Negative) Trace-intact H Urine Nitrite (Negative) Negative Urine Bilirubin (Negative) Negative Urine Urobilinogen (Up to 0.2) mg/dL 0.2 Ur Leukocyte Esterase (Negative) Negative Urine RBC (0-2) HPF 3-5 H Urine WBC (0-5) HPF 0-2 Ur Epithelial Cells (Negative) HPF Rare Urine Crystals (Negative) HPF Negative Urine Bacteria (Negative) HPF Rare Urine Casts (Negative) LPF Negative Urine Mucus (Negative) Negative Ur Culture Indicated? 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 states she is unaware of this. Dyslipidemia Umbilical hernia s/p repair Surgical History History of umbilical hernia repair (~08/25/21) Hx of cholecystectomy H/O tubal ligation Status post surgical removal of both fallopian tubes pt. reports ovaries removed also Social History Smoking/Tobacco Use Status: Never Smoking risk assessment performed?: Yes Alcohol Intake: never Drug use: Never Substance use type: does not use Details: CBD drops daily Do you feel safe at home: Yes Do you feel safe in your relationship?: Yes
[2025-03-12 10:54] VITALS: BP 136/77; PULSE 67; RESP 16; O2SAT 98
== END 2025-03-12 10:57 | disposition home or self-care (01) ==
PROVIDERS: Emergency Provider Physician Assistant; PCP Nurse Practitioner Family
DX: N39.0 Urinary tract infection, site not specified (principal)
CPT/HCPCS: 99284; 99283; 36415; 80053; 83690; 74176; 81003; 81015; 85025